=== PATIENT | male | born 1960 | race Caucasian/White ===

== ENCOUNTER 2023-07-15 14:43 | Inpatient (IN) | payer OTHER, SELFPAY ==
[2023-07-15] VITALS (63 sets, daily range): BP systolic 84–117; BP diastolic 47–90
--- NOTE | 2023-07-15 11:32 | ED.GENMED ---
History of Present Illness
<Don Mas PA-C - Last Filed: 07/15/23 13:48>
General
Chief Complaint: Rectal Bleeding
Source: patient
Exam Limitations: none
Time Seen by Provider: 07/15/23 11:15
Travel History
Have you had any contact with someone who has COVID-19?: No
Do you have any symptoms of coronavirus? Fever > 100 degrees, chills, cough, shortness of breath, sore throat, loss of taste or smell, muscle aches, or headache?: No
History of Present Illness
History of Present Illness:
62-year-old male with history of stage IV colon cancer has ostomy recently admitted to [facility] last week for COVID and anemia presents that his ostomy bag has now filled up 3 times with blood today. He notes fatigue. He denies abdominal pain.
No chest pain. He denies any shortness of breath. He did receive remdesivir while he was at the hospital. He has been told that the bleeding that he gets is from his tumor and there unable to cauterize this. He has been urinating. No other
complaints at this time.
Past History
<Don Mas PA-C - Last Filed: 07/15/23 13:48>
Past History
ED Past Medical History: Cancer (Prostate, recent dx with stage 4 colon ca)
ED Past Surgical History: Bowel resection (colostomy 12/01/21) and Urological
Social History
Tobacco: Non-smoker
Alcohol: Occasional
Drug: None
Personal:
Living: with family
Employment: Employed
Phy Exam
<Don Mas PA-C - Last Filed: 07/15/23 13:48>
Physical Exam
Physical Exam:
General: Ill-appearing male chronically no acute respiratory distress
HEENT: Normocephalic atraumatic
Heart: Regular rate and rhythm no murmur
Lungs: Clear no wheeze or rales
Abdomen: Ostomy present filled with dark red blood
Extremities: No cyanosis mild edema bilateral lower extremities
Skin: Warm no rash but pale
Course
<Don Mas PA-C - Last Filed: 07/15/23 13:48>
Orders/Labs/Results
Orders:
Orders
07/15/23 12:23
Type+Screen Urgent
Complete Blood Count/With Diff Urgent
Comprehensive Metabolic Panel Urgent
Manual Differential Urgent
07/15/23 12:36
* Blood Bank Products Urgent
Blood Bank Products: *Packed RBC Leuko(PRBC's)
Quantity: 2
Transfuse Today: Yes
Reason: Bleeding
07/15/23 12:52
0.9% Sodium Chloride 1000 ml [Nss] 1,000 ml IV BOLUS
07/15/23 13:02
Tranexamic Acid 1000 mg/100 ml [Tranexamic Acid] 1,000 mg in 100 ml IV ONCE
07/15/23 13:11
CT Angio Abd/Pelvis w/wo IV [CT Abd/pelvis Angio W/wo Iv] Urgent
Comment:
Reason For Exam: hemorrhage from ostomy
07/15/23 13:29
Magnesium Urgent
Potassium Chloride [KCl] 40 meq Dextrose 5%/Water 250 ml [D5w] 250 ml IV NOW
Abnormal Lab Results
07/15/23
12:23
WBC 21.9 H 10^3/uL
(4.8-10.8)
RBC 1.80 L 10^6/uL
(4.70-6.10)
Hgb 5.4 L* g/dL
(13.0-18.0)
Hct 15.8 L* %
(39.0-52.0)
RDW 19.6 H %
(11.5-14.5)
Abs Neuts (Manual) 19.2 H 10^3/uL
(1.4-6.5)
Segmented Neutrophils 86 H %
(42-75)
Lymphocytes (Manual) 4 L %
(20-51)
Potassium 2.8 L mmol/L
(3.5-5.1)
Chloride 113 H mmol/L
(98-107)
Carbon Dioxide 18 L mmol/L
(22-30)
Glucose 157 H mg/dl
(70-99)
Calcium 7.1 L mg/dl
(8.4-10.2)
Total Protein 4.4 L g/dl
(6.3-8.2)
Albumin 2.0 L g/dl
(3.5-5.0)
Crossmatch IS Only See Detail
07/15/23 12:23
07/15/23 12:23
Vital Signs
Initial and Last Documented VS:
Initial Vital Signs
Temp Pulse Resp BP Pulse Ox
97.6 F 112 18 101/71 100
07/15/23 11:06 07/15/23 11:06 07/15/23 11:06 07/15/23 11:06 07/15/23 11:06
Last Documented Vital Signs
Temp Pulse Resp BP Pulse Ox
97.8 F 85 18 102/57 100
07/15/23 13:45 07/15/23 13:45 07/15/23 13:45 07/15/23 13:45 07/15/23 13:45
Judylt;Hector Prakash, DO - Last Filed: 07/15/23 13:28>
Orders/Labs/Results
Orders:
Orders
07/15/23 12:23
Type+Screen Urgent
Complete Blood Count/With Diff Urgent
Comprehensive Metabolic Panel Urgent
Manual Differential Urgent
07/15/23 12:36
* Blood Bank Products Urgent
Blood Bank Products: *Packed RBC Leuko(PRBC's)
Quantity: 2
Transfuse Today: Yes
Reason: Bleeding
07/15/23 12:52
0.9% Sodium Chloride 1000 ml [Nss] 1,000 ml IV BOLUS
07/15/23 13:02
Tranexamic Acid 1000 mg/100 ml [Tranexamic Acid] 1,000 mg in 100 ml IV ONCE
07/15/23 13:11
CT Angio Abd/Pelvis w/wo IV [CT Abd/pelvis Angio W/wo Iv] Urgent
Comment:
Reason For Exam: hemorrhage from ostomy
07/15/23 13:29
Magnesium Urgent
Potassium Chloride [KCl] 40 meq Dextrose 5%/Water 250 ml [D5w] 250 ml IV NOW
Abnormal Lab Results
07/15/23
12:23
WBC 21.9 H 10^3/uL
(4.8-10.8)
RBC 1.80 L 10^6/uL
(4.70-6.10)
Hgb 5.4 L* g/dL
(13.0-18.0)
Hct 15.8 L* %
(39.0-52.0)
RDW 19.6 H %
(11.5-14.5)
Abs Neuts (Manual) 19.2 H 10^3/uL
(1.4-6.5)
Segmented Neutrophils 86 H %
(42-75)
Lymphocytes (Manual) 4 L %
(20-51)
Potassium 2.8 L mmol/L
(3.5-5.1)
Chloride 113 H mmol/L
(98-107)
Carbon Dioxide 18 L mmol/L
(22-30)
Glucose 157 H mg/dl
(70-99)
Calcium 7.1 L mg/dl
(8.4-10.2)
Total Protein 4.4 L g/dl
(6.3-8.2)
Albumin 2.0 L g/dl
(3.5-5.0)
Crossmatch IS Only See Detail
07/15/23 12:23
07/15/23 12:23
Vital Signs
Initial and Last Documented VS:
Initial Vital Signs
Temp Pulse Resp BP Pulse Ox
97.6 F 112 18 101/71 100
07/15/23 11:06 07/15/23 11:06 07/15/23 11:06 07/15/23 11:06 07/15/23 11:06
Last Documented Vital Signs
Temp Pulse Resp BP Pulse Ox
97.8 F 85 18 102/57 100
07/15/23 13:45 07/15/23 13:45 07/15/23 13:45 07/15/23 13:45 07/15/23 13:45
<Don Mas PA-C - Last Filed: 07/15/23 13:48>
MDM/Problems Addressed
Differential Diagnosis Includes:
GI bleeding. Patient was told as an outpatient his hemoglobin was 7 from blood draw yesterday
Will recheck labs and type and screen.
<Hector Prakash DO - Last Filed: 07/15/23 13:28>
*Critical Care Note
Total Time (30-74mins, 75-104mins- exclusive of procedures): 60
comment:
Critical care statement: A total of 60 minutes of critical care time was provided for this patient. This includes management of unstable vital signs, evaluation of the patient at bedside, reviewing the patient's pertinent medical records, discussion
with consultants, review of old EKGs and review of pertinent medical records. This time with separate from time utilized to perform the aforementioned documented procedures
<Don Mas PA-C - Last Filed: 07/15/23 13:48>
Update Note
Update Note:
Patient reevaluated multiple times. Blood pressure did drop in with systolic in the 80s. He continues to lose blood through his ostomy. Emergency room attending into see patient. Spoke to colorectal as well as GI. CTA ordered TXA ordered 2
units of blood were ordered. Admitting team notified for ICU admission.
ED Attending Note
<Don Mas PA-C - Last Filed: 07/15/23 13:48>
-
Portions of this chart may have been created with voice recognition software.� Occasional wrong word or��sound alike� substitutions may have occurred due to the inherent limitations of voice recognition software.
<Hector Prakash DO - Last Filed: 07/15/23 13:28>
ED Attending Note
Patient seen and examined by attending physician: Yes
I performed the substantive portion of visit, reviewed & personally made and approve the management plan that is documented in note by myself or FIORDALIZA.: Yes
ED Attending Note:
I have reviewed and agree with history and treatment plan by Nakul Mas. My exam revealed bright red blood from colostomy, mild control with direct pressure. TXA ordered. 2 units packed red blood cells ordered. Discussed with Dr. Daniels, who
recommended CTA, but does not think that is operable. Plan to admit to ICU.
Discharge Plan
Departure
Patient Disposition: Admit
Date of Disposition: 07/15/23
Time of Disposition: 13:47
Admit to: ICU
Presentation/result/management discussed w/ accepting MD/DO: Hospitalist
Discharge Problem:
Acute GI bleeding, Anemia
Prescriptions:
No Action
loperamide [Imodium] 2 mg Capsule
4 mg PO TIDPRN PRN (Reason: diarrhea)
olanzapine 5 mg Tablet
5 mg PO HS
diphenoxylate-atropine 2.5-0.025 mg Tablet
1 tab PO QIDPRN PRN (Reason: diarrhea)
Patient Comments:
07/15/2023, pt. filled this med. on 05/20/2023 for 30 tablets according to PDMP.
prochlorperazine maleate 10 mg Tablet
10 mg PO Q6H PRN (Reason: nausea)
ondansetron 8 mg Tablet,Disintegrating
8 mg PO Q8H PRN (Reason: nausea)
vitamin B complex Tablet
1 tab PO DAILY
gabapentin 100 mg Capsule
200 mg PO HS
loratadine [Claritin] 10 mg Tablet
10 mg PO DAILY
potassium chloride 10 mEq tablet,ER particles/crystals
10 meq PO DAILY
Patient Comments:
07/15/2023, prescribed BID but pt. only takes once daily in the morning.
potassium, sodium phosphates [Phos-NaK] 280-160-250 mg Powder In Packet
2 packet PO BID
Patient Comments:
07/15/2023, pt. filled this med. on 07/12/2023 and is instructed to take 2 packets BID for 2 days.
baclofen 5 mg Tablet
5 mg PO TID
Patient Comments:
07/15/2023, pt. has since sopped taking b/c his hiccups resided.
Ziextenzo 6 mg/0.6 mL Syringe
6 mg SC . EVERY OTHER WEEK
Patient Comments:
07/15/2023, not in pt.'s pharmacy records or in [facility].
Referrals:
Robert Bettencourt DO [Family Provider] -
Interventions
Interventions:
*General Assessment Last Done: 07/15/23 11:40
*ED COVID-19 Vaccine History Last Done: 07/15/23 11:06
JQ-Egowva-Ivvvagujig Assessment Last Done: 07/15/23 11:40
ED- Cardiac Assessment Last Done: 07/15/23 12:09
ED- Pulmonary Assessment Last Done: 07/15/23 13:00
--- NOTE | 2023-07-15 11:55 | PHANOTE ---
07/15/2023, [employer], spoke to pt. and pt.'s spouse to obtain pt.'s med. history; pt. does not take a lot of their prescription meds. on a routine basis. Additionally, pt. states that they take Ziextenzo every other week but I was unable to find
this med. in pt.'s pharmacy fill data or [facility] records.
[2023-07-15 12:35] LABS: Mean Corp Hgb Conc. 34.2 g/dL (33.0-37.0); Mean Corpuscular Volume 87.8 fL (80.0-94.0); Platelet Count 216 10^3/uL (130-400); Red Cell Dist. Width 19.6 % (11.5-14.5); White Blood Cell Count 21.9 10^3/uL (4.8-10.8)
[2023-07-15 12:48] LABS: Hematocrit 15.8 % (39.0-52.0)
[2023-07-15 12:49] LABS: Hemoglobin 5.4 g/dL (13.0-18.0)
[2023-07-15] MEDS: NSS 1000 IV (12:54)
[2023-07-15 12:57] LABS: ALT (SGPT) 17 U/L (0-50); AST (SGOT) 28 U/L (17-59); Alkaline Phosphatase 122 U/L (38-126); Blood Urea Nitrogen 19 mg/dl (9-20); Calcium 7.1 mg/dl (8.4-10.2); Carbon Dioxide 18 mmol/L (22-30); Chloride 113 mmol/L (98-107); Glucose 157 mg/dl (70-99); Potassium 2.8 mmol/L (3.5-5.1); Sodium 135 mmol/L (135-145); Total Bilirubin 0.9 mg/dl (0.2-1.3); Total Protein 4.4 g/dl (6.3-8.2); eGFR > 60.00
[2023-07-15] MEDS: TRANEXAMIC ACID 100 IV (13:07)
[2023-07-15 13:11] LABS: Absolute Neutrophils -Man Diff 19.2 10^3/uL (1.4-6.5); Band Neutrophils 2 % (0-3); Lymphocytes 4 % (20-51); Monocytes 3 % (2-9); Segmented Neutrophils 86 % (42-75)
[2023-07-15 13:12] LABS: Anisocytosis 2+; Hypochromasia Slight; Metamyelocytes 4 % (-); Myelocytes 1 % (-); Normal RBC Morphology No; Platelets Checked Yes; Polychromasia 2+
[2023-07-15 13:13] LABS: Ovalocytes 1+; Total Cells Counted 100
--- NOTE | 2023-07-15 13:43 | HPS.HSE ---
Addendum entered and electronically signed by More Lo MD 07/15/23 16:51:
cancel GI consult
Original Note:
Family Physician
-
Family Physician: Robert Bettencourt
Chief Complaint
-
Rectal bleeding.
History of Present Illness
62 y/o male with rectal bleeding. He has a history of stage IV colon cancer and has an ostomy and recently treated at [facility] last week for COVID and anemia. His ostomy bag is now filled up to 3 times with blood. Denies any abdominal pain.
Patient has been told that he has a tumor and are unable to cauterize his bleeding.Pt left AMA on 07/11/2023. Patient was admitted to [facility] from 07/07/23. He had COVID. Also had bleeding from the ostomy they did a scope-flex sig?-Through the
scope and was unable to cauterize any bleeding as the bleeding was coming from the tumor. Patient ended up getting 5 units of blood. Patient stated that he has had this bleeding October and January also. He was on chemotherapy since November 2021 and 6
weeks ago his chemo was changed to another medicine.
Medical History
Past Medical History
Past Medical History: Reports Other
Additional Past Medical History:
C6 herniated disc, diverticulosis with history of diverticulitis, inoperable colon cancer, prostate cancer, anemia, chronic fatigue, COVID-19 infection-recent
Past Surgical History: Reports Other
Additional Past Surgical History:
Prostatectomy, wisdom teeth surgery, colorectal surgery
Social History
Tobacco: Non-smoker
Alcohol: Other (Used to drink 1 drink every day until he was diagnosed with colon cancer in 2021. Does not drink since then.)
Drug: None
Personal:
Living: With Family
Family History
Family History: CAD and Cancer (Father with history of prostate cancer mother B-cell lymphoma)
Allergies / Home Medications
Allergies reflects when Allergies were last updated in [facility].
Home Medications with original date entered in [facility]
Allergy/Medication List:
Allergies
Allergy/AdvReac Type Severity Reaction Status Date / Time
No Known Allergies Allergy Verified 07/15/23 11:12
Home Medications
baclofen 5 mg tablet 5 mg PO TID 07/15/23
diphenoxylate-atropine 2.5 mg-0.025 mg tablet 1 tab PO QIDPRN PRN diarrhea 07/15/23
gabapentin 100 mg capsule 200 mg PO HS 07/15/23
loperamide 2 mg capsule 4 mg PO TIDPRN PRN diarrhea 07/15/23
loratadine 10 mg tablet (Claritin) 10 mg PO DAILY 07/15/23
olanzapine 5 mg tablet 5 mg PO HS 07/15/23
ondansetron 8 mg disintegrating tablet 8 mg PO Q8H PRN nausea 07/15/23
pegfilgrastim-bmez 6 mg/0.6 mL subcutaneous syringe (Ziextenzo) 6 mg SC . EVERY OTHER WEEK 07/15/23
potassium chloride 10 mEq tablet,extended release(part/cryst) 10 meq PO DAILY 07/15/23
potassium, sodium phosphates 280 mg-160 mg-250 mg oral powder packet (Phos-NaK) 2 packet PO BID 07/15/23
prochlorperazine maleate 10 mg tablet 10 mg PO Q6H PRN nausea 07/15/23
vitamin B complex 1 tab PO DAILY 07/15/23
Review of Systems
-
History Source: Patient
Abdomen/GI: Reports Diarrhea and Bloody Stools; Denies Abdominal Pain, Nausea or Vomiting
Neurological: Denies Dizzy or Headache
Physical Exam
Vital Signs
Vital Signs
Temp Pulse Resp BP Pulse Ox
97.8 F 85 18 102/57 100
07/15/23 13:42 07/15/23 13:42 07/15/23 13:42 07/15/23 13:42 07/15/23 13:42
Physical Exam
General: Other (Patient appears very pale)
Respiratory: Clear
Cardiac: Regular Rhythm
GI: Soft, Normal Bowel Sounds and Ostomy (Fresh blood in the ostomy bag)
Neuro: AO x 3 and Nonfocal/grossly intact
Psych: Intact Judgment/Insight
Laboratory Results
-
07/15/23 12:23
07/15/23 12:23
Laboratory Results
Total Bilirubin 0.9 mg/dl (0.2-1.3) 07/15/23 12:23
AST 28 U/L (17-59) 07/15/23 12:23
ALT 17 U/L (0-50) 07/15/23 12:23
Alkaline Phosphatase 122 U/L (38-126) 07/15/23 12:23
Data Reviewed
-
CT Scan: Report Reviewed by me (CT scan of the abdomen and pelvis-large volume massive ascites increased in size comparison to the recent. Evaluation of the colon for active bleeding markedly limited. Extensive omental and peritoneal
carcinomatosis. Left lower quadrant colostomy with accompanying parastomal hernia. Scattered s)
Impression/Plan
-
IMPRESSION/PLAN:
#Bleeding into ostomy
Patient had similar problem in October, January and also end of June 2023 where he was admitted to [facility].
He got 5 units of blood at that time and flex sig through the ostomy found the tumor bleeding. They told him nothing could be done.
Admit to ICU
IVF and blood product resuscitation
Tranexamic acid has been given
GI and colorectal surgery eval
Follow H and H and transfuse as needed
CT angiogram as above
#Acute Blood loss Anemia secondary to GI bleed
# Severe hypokalemia-replace IV and also check magnesium
Likely secondary to diarrhea
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
Omental metastasis, peritoneal carcinomatosis and massive ascites noted
Patient has not been able to follow-up with his oncologist after CT on 07/06/2023 as she is on vacation.
Resident at [facility] is Dr Albarado
Patient and think that he was on FOLFOX regimen before and changed to a new regimen 6 weeks ago and he has had 3 cycles of that.
# Elevated white count-unclear if secondary to Pegfilgrastim
But check stool studies, chest x-ray, urinalysis
# Recent COVID-19 infection
# Severe hypoalbuminemia
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
# SCDs for DVT prophylaxis
# CODE STATUS-DNR per discussion with the patient with at bedside
Sister and at bedside
Discussed with ER attending
Discussed with colorectal at bedside
Poor prognosis
CC time 45 min
--- NOTE | 2023-07-15 14:10 | CON.CRS ---
Consultation
-
Date/Time Consultation Requested: 07/15/2023, 13:10
Date/Time Consultation Performed: 07/15/2023, 14:00
Requesting Provider: Don Flores PA-C
Performing Provider: Don Daniels MD
Reason for Consultation: bleeding from stoma
Medical History
-
Chief Complaint: stoma bleed
History of Present Illness:
62-year-old male presents the emergency department with stage IV sigmoid cancer with large bowel obstruction and secondary liver and peritoneal disease.� He had a colonoscopy by Dr. Acosta on 11/27/2021 which confirmed obstructing sigmoid mass.�
During that procedure the scope was unable to pass the mass.� On biopsy it was revealed to be a villous adenoma with HGD on biopsy.�He underwent a loop sigmoid colostomy in 11/[address] Reyes. His findings included a large bowel obstruction
secondary to the sigmoid colon tumor. He was since discharged in December 2021 and went to [facility] for treatment. He states in October 2022, January 2023, and this past week he has had instances of bleeding from his stoma. Usually it stops, however, a week
ago it did not. He went to [facility] and was admitted from this past Tuesday to Tuesday. On Tuesday he left AMA. He is under the treatment of Dr. Dodson. He underwent several blood transfusions while he was at [facility]. He also underwent a flexible
sigmoidoscopy and was told the bleeding was coming from his tumor. He recently had a staging CT A/P but does not know the results. Of note, he was diagnosed with COVID at [facility].
He arrived at [facility] due to the ostomy bag filling up with blood 5 times today.He admits to some fatigue. He denies abdominal pain. He received 1 unit of tranexemic acid while in the ER. Currently he is not bleeding. His hgb is 5.4 and
his WBC is 21.9. He is receiving several units of blood. He is slightly hypotensive. He underwent a CT A/P and the final result is pending.
Past Medical History
Past Medical History: Cancer (prostate cancer, stage IV colon cancer, anal fissure, diverticulitis) and Other
Past Surgical History: Other (robotic prostatectomy, )
Social History
Tobacco: Non-Smoker
Alcohol: Occasional
Personal:
Family History
Family History: Reviewed & Not Pertinent
Allergies / Home Medications
Allergy/AdvReac Type Severity Reaction Status Date / Time
No Known Allergies Allergy Verified 07/15/23 11:12
Medication Instructions Recorded Confirmed Type
baclofen 5 mg tablet 5 mg PO TID 07/15/23 07/15/23 History
diphenoxylate-atropine 2.5 1 tab PO QIDPRN PRN diarrhea 07/15/23 07/15/23 History
mg-0.025 mg tablet
gabapentin 100 mg capsule 200 mg PO HS 07/15/23 07/15/23 History
loperamide 2 mg capsule 4 mg PO TIDPRN PRN diarrhea 07/15/23 07/15/23 History
loratadine 10 mg tablet (Claritin) 10 mg PO DAILY 07/15/23 07/15/23 History
olanzapine 5 mg tablet 5 mg PO HS 07/15/23 07/15/23 History
ondansetron 8 mg disintegrating 8 mg PO Q8H PRN nausea 07/15/23 07/15/23 History
tablet
pegfilgrastim-bmez 6 mg/0.6 mL 6 mg SC . EVERY OTHER WEEK 07/15/23 History
subcutaneous syringe (Ziextenzo)
potassium chloride 10 mEq 10 meq PO DAILY 07/15/23 07/15/23 History
tablet,extended release(part/cryst)
potassium, sodium phosphates 280 2 packet PO BID 07/15/23 07/15/23 History
mg-160 mg-250 mg oral powder
packet (Phos-NaK)
prochlorperazine maleate 10 mg 10 mg PO Q6H PRN nausea 07/15/23 07/15/23 History
tablet
vitamin B complex 1 tab PO DAILY 07/15/23 07/15/23 History
Review of Systems
-
History Source: Patient and Family
Constitutional: Fatigue
Abdomen/GI: Bloody Stools (from stoma)
A 10 point review of systems was completed, and was negative except as per HPI.
Physical Exam
Vital Signs
Temp 97.8 F 07/15/23 14:05
Pulse 77 07/15/23 14:05
Resp Rate 13 07/15/23 14:05
Blood pressure 105/65 07/15/23 14:05
SaO2 100 07/15/23 13:59
07/14/23 07/15/23 07/16/23
06:59 06:59 06:59
Actual Weight 86.8 kg
Lab Results / Allergies
WBC 21.9 10^3/uL (4.8-10.8) H 07/15/23 12:23
Hgb 5.4 g/dL (13.0-18.0) L* 07/15/23 12:23
Hct 15.8 % (39.0-52.0) L* 07/15/23 12:23
Plt Count 216 10^3/uL (130-400) 07/15/23 12:23
Allergy/AdvReac Type Severity Reaction Status Date / Time
No Known Allergies Allergy Verified 07/15/23 11:12
Physical Exam
General: Other (pale in appearance, aaox3)
GI: Soft, Non Tender and Non Distended
Neuro: AO x 3
Psych: Calm
Data Reviewed
-
CT Scan: Image Personally Visualized and interpreted, Report Reviewed by me and Discussed with Patient
Labs: Labs Reviewed by me, Discussed with Physician and Discussed with Patient
Assessment / Plan
-
Assessment: 62 male with stage IV colon cancer, undergoing chemo at [facility], now with a bleeding from the ostomy, hgb 5.3
Plan:
The bleeding does not appear to be from the stoma itself upon examination. He recently had a flex sig at [facility] which per the patient and revealed the tumor itself was bleeding. Recommend transfusions, serial H/H's, and another transexmic
acid 1g IV if bleeding reoccurs. CTA A/P if bleeds again.
[2023-07-15 14:58] LABS: Iron 79 ug/dl (49-181); Magnesium 2.7 mg/dl (1.6-2.3)
[2023-07-15] MEDS: KCL 270 MEQ IV (15:02)
--- NOTE | 2023-07-15 15:04 | CON.INTV ---
Consultation
Consultation Request
Date/Time Consultation Requested: 07-15-23
Date/Time Consultation Performed: 07-15-23
Requesting Provider: Hospitalist
Performing Provider: Dr Bautista
Reason for Consultation: severe anemia, sigmoid colostomy bleeding
Medical History
-
Chief Complaint: sigmoid colostomy bleeding
History of Present Illness:
Mr Lisa Borrero is a 62/M adm 07-15 with recurrent sigmoid colostomy bleeding.
Known h/o stage IV colon cancer, s/p loop sigmoid colostomy November 2021 at , then further treatment at [facility] for metastatic colon cancer, recently adm there on 07-09 for recurrent stomal bleeding, given several blood transfusions, sigmoidoscopy found
source of bleeding at colonic tumor, incidentally positive for COVID at that facility.
Upon ER arrival his colostomy bag filled up to 5 times on DOA, hypotensive, given TA dose at ER, started IVFs. CTA abd/p could not confirm active bleeding due to limited study as result of ascites
Past Medical History
Past Medical History: Other (see A&P for PMH/PSH)
Social History
Tobacco: Non-smoker
Alcohol: Occasional
Personal:
Living: With Family
Family History
Family History: Reviewed & Not Pertinent
Allergies / Home Medications
Allergies
Allergy/AdvReac Type Severity Reaction Status Date / Time
No Known Allergies Allergy Verified 07/15/23 11:12
Home Medications
Medication Instructions Recorded Confirmed Last Taken Type
baclofen 5 mg tablet 5 mg PO TID Muscle Spasms 07/15/23 07/15/23 3 Days Ago History
~07/12/23
diphenoxylate-atropine 2.5 1 tab PO QIDPRN PRN diarrhea 07/15/23 07/15/23 Unknown History
mg-0.025 mg tablet
gabapentin 100 mg capsule 200 mg PO HS Pain 07/15/23 07/15/23 07/14/23 History
loperamide 2 mg capsule 4 mg PO TIDPRN PRN diarrhea 07/15/23 07/15/23 1 Week Ago History
~07/08/23
loratadine 10 mg tablet (Claritin) 10 mg PO DAILY Allergies 07/15/23 07/15/23 07/13/23 History
olanzapine 5 mg tablet 5 mg PO HS Mental Health 07/15/23 07/15/23 Unknown History
ondansetron 8 mg disintegrating 8 mg PO Q8H PRN nausea 07/15/23 07/15/23 Unknown History
tablet
pegfilgrastim-bmez 6 mg/0.6 mL 6 mg SC . EVERY OTHER WEEK white 07/15/23 Unknown History
subcutaneous syringe (Ziextenzo) blood cell count
potassium chloride 10 mEq 10 meq PO DAILY Electrolyte 07/15/23 07/15/23 2 Days Ago History
tablet,extended release(part/cryst) Repletion ~07/13/23
potassium, sodium phosphates 280 2 packet PO BID Electrolyte 07/15/23 07/15/23 2 Days Ago History
mg-160 mg-250 mg oral powder Repletion ~07/13/23
packet (Phos-NaK)
prochlorperazine maleate 10 mg 10 mg PO Q6H PRN nausea 07/15/23 07/15/23 Unknown History
tablet
vitamin B complex 1 tab PO DAILY Supplement 07/15/23 07/15/23 07/13/23 History
Review of Systems
-
History Source: Patient
All other systems: Negative unless noted
Constitutional: Fatigue
Abdomen/GI: Other (colostomy bleeding)
Neuro: Weakness
Vitals / Labs / Diagnostic Testing
Vital Signs
Temp Pulse Resp BP Pulse Ox
97.4 F 71 12 106/65 100
07/15/23 15:00 07/15/23 15:00 07/15/23 15:00 07/15/23 15:00 07/15/23 15:00
Diagnostic Testing:
Physical Exam
-
HEENT: Normocephalic and Moist Mucous Membranes
Cardiovascular: Regular Rhythm, Murmur (n), Peripheral Edema (DAVID), Calf Tenderness (n), JVD and Other (R chest port-A-cath)
Respiratory: Clear and Non-Labored Respirations
GI: Soft, Non Distended, Non Tender and Other (colostomy )
Neurology: Awake, AO x 3 and No Motor Deficits
Skin: Dry
General: Respiratory Distress (n)
Assessment
-
Assessment:
Mr Lisa Borrero is a 62/M adm 07-15 with recurrent sigmoid colostomy bleeding. Known h/o stage IV colon cancer, s/p loop sigmoid colostomy November 2021 at , then further treatment at [facility] for metastatic colon cancer, recently adm there on 07-09
for recurrent stomal bleeding, given several blood transfusions, sigmoidoscopy found source of bleeding at colonic tumor, incidentally positive for COVID at that facility. Upon ER arrival his colostomy bag filled up to 5 times on DOA, hypotensive,
given TA dose at ER, CTA abd/p could not confirm active bleeding due to limited study as result of ascites
Impression:
Acute severe anemia
Reportedly colonic tumor is source of bleeding (sigmoidoscopy at [facility])
Chemo-induced neuropathy, on gabapentin
Leukocytosis
Hypokalemia
Recent COVID positive test
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
Metastatic colon cancer: ascites, omental/peritoneal, liver. On palliative chemo, FOLFOX based regimen until 6 wks ago when regimen was changed
COVID positive test on recent adm to [facility] 07-08, reportedly received 4 doses of remdesivir, unsure if received dexam but was not d/c on dexam, he left AMA on M 07-11
Diverticulosis
Prostate cancer
Former ETOH use
Nonsmoker
DNR
Plan:
O2 protocol
Currently on O2 2L, POx 100%
Asp precs
IS
Recurrent bleeding through colostomy: events noted in October and Jan 2023 and Jun 2023
Reportedly site of bleeding is colonic tumor per endoscopic evaluation, received up to 5U PRBCs
Reports side effect of diarrhea from previous chemo regimen and also recent chemo regimen
C diff testing pending
IVFs
Observe off atbs for now
Monitor H/H
Transfuse for Hgb<7, ongoing at time of visit
E-lyte replacement
Tranexamic acid if bleeding reoccurs
Apparently bleeding collection appears decreased while seen at ER
Seen by CRS, currently no plan for surgical intervention
GI consulted
Keep NPO for now
SCDs for DVT proph
D/w Mr and Mrs Borrero at ER
Guarded prognosis
Critical care time: 35 min
Diagnostic tests:
CXR 07-15-23: portable, no infiltrates, R chest port-A-cath. No free air
CTA abd/p 07-15-23: lung bases with patchy R LL posterior infiltrates
[2023-07-15 15:07] LABS: Percent Saturation 48 % (20-50); Total Iron Binding Capacity 163 ug/dl (261-462)
[2023-07-15 16:04] LABS: Vitamin D, 25-OH*** < 12.8 ng/mL (30-80)
[2023-07-15 16:37] LABS: Vitamin B12 > 1000 pg/ml (239-931)
[2023-07-15] MEDS: KCL 10 MEQ PO (17:39)
[2023-07-15] MEDS: D5LR 1000 IV (17:40)
[2023-07-15] MEDS: LIORESAL PO ×2 (17:40→21:55)
[2023-07-15 17:44] LABS: Hematocrit 19.8 % (39.0-52.0); Hemoglobin 7.2 g/dL (13.0-18.0)
[2023-07-15 17:51] LABS: INR 1.51
[2023-07-15 17:52] LABS: APTT 40.4 Sec (23.4-35.0)
[2023-07-15 17:57] LABS: Blood Urea Nitrogen 17 mg/dl (9-20); Calcium 6.8 mg/dl (8.4-10.2); Carbon Dioxide 17 mmol/L (22-30); Chloride 115 mmol/L (98-107); Estimated Creatinine Clearance 96 ml/min; Glucose 92 mg/dl (70-99); Magnesium 2.6 mg/dl (1.6-2.3); Potassium 2.9 mmol/L (3.5-5.1); Sodium 134 mmol/L (135-145); eGFR > 60.00
--- NOTE | 2023-07-15 18:23 | PTCARENOTE ---
Pt admitted to ICU bed 3357 from ED at 1615.
Pt AAOx3. Reports neuropathy in all extremities as side effect of chemo.
Sinus rhythm. +1 ankle edema. Weak pedal pulses
Lungs CTA. SpO2 100% on 2L NC.
Colostomy with about 25ml bright red blood since received from ED. No active bleeding noted.
Pt has not voided since admitted to unit.
Skin intact.
IVF started per order. KCl infusing.
Unable to to get blood cultures at this time d/t pt difficult stick.
Infection prevention called d/t pt reported positive covid test 7days ago. Pt placed on covid isolation.
Critical calcium 6.8 reported. Awaiting calcium repletion order before starting third unit of PRBC.
[2023-07-15 18:45] LABS: Vitamin B12 > 1000 pg/ml (239-931)
[2023-07-15] MEDS: KCL 100 IV (19:46)
[2023-07-15] MEDS: CALCIUM GLUCONATE 130 MG IV (19:46)
--- NOTE | 2023-07-15 19:58 | PTCARENOTE ---
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 POC discussed with pt and family, call blanco with patient.
[2023-07-15] MEDS: ZYPREXA 5 MG PO (21:55)
[2023-07-15] MEDS: NEURONTIN 200 MG PO (21:55)
--- NOTE | 2023-07-15 22:00 | PTCARENOTE ---
1u PRBC complete, pt voided 275cc lauro urine, UA to lab.
[2023-07-15 22:20] LABS: Urine Albumin Trace (Neg - Trace); Urine Bilirubin Negative (Negative); Urine Character Clear (Clear); Urine Color Yellow; Urine Glucose Negative (Negative); Urine Ketone Negative (Negative); Urine Leukocyte Negative (Negative); Urine Nitrite Negative (Negative); Urine Occult Blood Negative (Negative); Urine Specific Gravity 1.015 (<1.030); Urine Urobilinogen Negative (Neg - 1+)
[2023-07-15 23:22] LABS: Hematocrit 23.3 % (39.0-52.0); Hemoglobin 8.4 g/dL (13.0-18.0)
[2023-07-16] VITALS (27 sets, daily range): BP systolic 84–121; BP diastolic 61–84; PULSE 70–84; BMI 22.9
--- NOTE | 2023-07-16 | PTCARENOTE ---
ostomy emptied for 100cc bloody liquid/soft brown stool. no changes in assessment.
[2023-07-16 00:06] LABS: Blood Urea Nitrogen 17 mg/dl (9-20); Calcium 7.4 mg/dl (8.4-10.2); Carbon Dioxide 19 mmol/L (22-30); Chloride 115 mmol/L (98-107); Estimated Creatinine Clearance 88 ml/min; Glucose 121 mg/dl (70-99); Magnesium 2.5 mg/dl (1.6-2.3); Potassium 3.8 mmol/L (3.5-5.1); Sodium 134 mmol/L (135-145); eGFR > 60.00
[2023-07-16] MEDS: SODIUM BICARBONATE 1075 MEQ IV (02:37)
--- NOTE | 2023-07-16 06:08 | PTCARENOTE ---
no changes in assessment, ostomy bag with small amt brown liquid stool, no blood noted.
[2023-07-16 06:29] LABS: Hematocrit 21.9 % (39.0-52.0); Hemoglobin 7.8 g/dL (13.0-18.0)
[2023-07-16 06:50] LABS: Blood Urea Nitrogen 16 mg/dl (9-20); Calcium 7.3 mg/dl (8.4-10.2); Carbon Dioxide 16 mmol/L (22-30); Chloride 117 mmol/L (98-107); Estimated Creatinine Clearance 87 ml/min; Glucose 103 mg/dl (70-99); Potassium 3.3 mmol/L (3.5-5.1); Sodium 136 mmol/L (135-145); eGFR > 60.00
--- NOTE | 2023-07-16 07:38 | W.PN.INTV ---
Today's Communication / Plan
Recommendations
Monitor H&H
Transfuse if hemoglobin less than 7
CRS following
Assessment
-
Assessment:
Mr Lisa Borrero is a 62/M adm 07-15 with recurrent sigmoid colostomy bleeding. Known h/o stage IV colon cancer, s/p loop sigmoid colostomy November 2021 at , then further treatment at [facility] for metastatic colon cancer, recently adm there on 07-09
for recurrent stomal bleeding, given several blood transfusions, sigmoidoscopy found source of bleeding at colonic tumor, incidentally positive for COVID at that facility. Upon ER arrival his colostomy bag filled up to 5 times on DOA, hypotensive,
given TA dose at ER, CTA abd/p could not confirm active bleeding due to limited study as result of ascites
Impression:
Acute severe anemia
Reportedly colonic tumor is source of bleeding (sigmoidoscopy at [facility])
Chemo-induced neuropathy, on gabapentin
Leukocytosis
Hypokalemia
Recent COVID positive test
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
Metastatic colon cancer: ascites, omental/peritoneal, liver. On palliative chemo, FOLFOX based regimen until 6 wks ago when regimen was changed
COVID positive test on recent adm to [facility] 07-08, reportedly received 4 doses of remdesivir, unsure if received dexam but was not d/c on dexam, he left AMA on M 07-11
Diverticulosis
Prostate cancer
Former ETOH use
Nonsmoker
DNR
Plan:
O2 protocol
Currently on O2 2L, POx 100%
Asp precs
IS
Recurrent bleeding through colostomy: events noted in October and Jan 2023 and Jun 2023
Reportedly site of bleeding is colonic tumor per endoscopic evaluation, received up to 5U PRBCs
Reports side effect of diarrhea from previous chemo regimen and also recent chemo regimen
C diff testing negative
IVFs
Observe off atbs for now
Monitor H/H
Transfuse for Hgb<7
So far has received 3 U PRBCs, Hgb 5.4 on adm, up to 8.4, now down to 7.8, follow
E-lyte replacement
Seen by CRS, currently no plan for surgical intervention
Not a candidate for palliative resection
If rebleeds, CTA for possible embolization
If bleeding stops, consider palliative XRT as outpatient
Rec hospice
Keep NPO for now
SCDs for DVT proph
D/w Mr and Mrs Borrero at ER
Guarded prognosis
Critical care time: 35 min
Diagnostic tests:
CXR 07-15-23: portable, no infiltrates, R chest port-A-cath. No free air
CTA abd/p 07-15-23: lung bases with patchy R LL posterior infiltrates
Subjective Dataa
Subjective Data
Date of Service:
Date of Service: July 16, 2023
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
Subjective:
No major events reported overnight
Microscopic bleeding has stopped
Hemoglobin remains stable
Denies major complaints
Review of Systems
General: Fever (n), Sweats (n), Chills (n) and Satisfactory Appetite (n)
HEENT: Epistaxis (n) and Dysphagia (n)
Cardiopulmonary: Dyspnea, Cough (n) and Edema (DAVDI)
GI: Abdominal Pain (n), Nausea (n) and Vomiting
Neuro: Weakness
Objective Data
Data Reviewed
Vital Signs / I&O / Oxygen:
Vital Signs
Temp Pulse Resp BP Pulse Ox
98 F 75 17 108/67 98
07/15/23 22:00 07/16/23 06:00 07/16/23 06:00 07/16/23 06:00 07/16/23 06:00
Intake and Output
07/15/23 07/16/23 07/17/23
06:59 06:59 06:59
Intake Total 2099 / 2099
Output Total 825 / 825
Balance 1275 / 1275
SaO2 98
Nasal Cannula flow liters per 2
minute
Labs/Micro/Reports
Lab Data
07/16/23 05:56
07/16/23 05:56
Laboratory Results
07/15/23
17:22
PT 18.0 H
INR 1.51
APTT 40.4 H
Microbiology
07/15/23 17:42 Feces/Stool C. difficile GDH Antigen & Toxins - Final
Negative for toxigenic C.difficile
--- NOTE | 2023-07-16 07:39 | W.PN.HOSP.TC ---
Today's Communication/Plan
-
monitor H&H, transfuse as necessary goal Hgb>7
Oncology eval
Replete potassium
NPO except meds sips clear ice chips for now, advance if no procedure anticipated
Assessment / Plan
Assessment / Plan
Physical Exam
General: No acute distress appears comfortable at this time
HEENT: PERRLA non-icteric
Respiratory: Clear to auscultation
Cardiac: Regular Rate Rhythm no murmurs
GI: Soft, Normal Bowel Sounds and Ostomy bag dark bilious diarrhea noted
Neuro: AO x 3 and Nonfocal/grossly intact
Psych: Intact Judgment/Insight
62 y/o male with� rectal bleeding.� He has a history of stage IV colon cancer and has an ostomy and recently treated at [facility] last week for COVID and anemia.� His ostomy bag is now filled up to 3 times with blood.� Denies any abdominal pain.�
Patient has been told that he has a tumor and are unable to cauterize his bleeding.Pt left AMA on 07/11/2023.� Patient was admitted to [facility] from 07/07/23.� He had COVID.� Also had bleeding from the ostomy they did a scope-flex sig?-Through the
scope and was unable to cauterize any bleeding as the bleeding was coming from the tumor.� Patient ended up getting 5 units of blood.� Patient stated that he has had this bleeding October and January also.� He was on chemotherapy since November 2021 and 6
weeks ago his chemo was changed to another medicine.
#Bleeding into ostomy
Patient had similar problem in October, January and also end of June 2023 where he was admitted to [facility].�
He got 5 units of blood at that time and flex sig through the ostomy found the tumor bleeding.� They told him nothing could be done.
Admitted to ICU
IVF and blood product resuscitation received 3U so far with subsequent improvement Hgb 5.4 to 7.2
Tranexamic acid was given
colorectal surgery eval appreciated poor surgical candidate even from palliative perspective
Follow H and H and transfuse as needed goal hgb>7
CT angiogram appreciated
-Large volume/massive ascites perhaps slightly increased in comparison to recent prior study.
-Evaluation of the colon for active bleeding markedly limited as a result of the ascites without findings to confirm active colonic bleeding.
-Extensive omental and peritoneal carcinomatosis again seen.
-Left lower quadrant colostomy again noted with likely accompanying parastomal hernia with small volume fluid.
-Essentially stable scattered small low-attenuation hepatic lesions too small to characterize.
-Small simple right renal cyst.
-Small umbilical hernia containing fluid, stable.
-New right lower lobe scattered patchy opacity which could represent pneumonia/pneumonitis. (does not correlate clinically at this time however, no significant respiratory symptoms stable on room air)
#Acute Blood loss Anemia secondary to GI bleed
#hypokalemia
Likely secondary to diarrhea
Monitor and replete as necessary
# Adenocarcinoma of sigmoid� with diverticulosis done in November 2021
Omental metastasis, peritoneal carcinomatosis and massive ascites noted
Patient has not been able to follow-up with his oncologist after CT on 07/06/2023 as she is on vacation.
Resident at [facility] is Dr Albarado
Patient and think that he was on FOLFOX regimen before and changed to a new regimen 6 weeks ago and he has had 3 cycles of that.
Oncology Eval requested
# Elevated white count-unclear if secondary to Pegfilgrastim vs stress reactive severe anemia
chest x-ray no acute abn's
urinalysis negative for infection
NGTD stool studies
Blood culture NGTD
# Recent COVID-19 infection
Positive Jul 08Tuesday as per
since AMA repeat tests at home negative
Re-check COVID
maintain isolation for now
# Severe hypoalbuminemia
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
# SCDs for DVT prophylaxis
# CODE STATUS-DNR
Discussed with patient, patient's and sister.
Poor prognosis. Goals of care discussion, patient not interested entering hospice at this time but agreeable to receiving more education/information regarding it. Consult requested accordingly
Total Critical Care Time__50___ minutes. I was immediately available to the patient and staff. I personally examined, reviewed labs, diagnostic images/reports, interpretations, treatment plans, discussed patient care with other providers and
family or caregivers (if patient is unable to make decisions), entered orders as appropriate and documented the medical record.
Anticipated Discharge: > 48 hours
Subjective/Interval History
-
Date of Service: July 16, 2023
no acute distress resting comfortably in bed. dark bilious diarrhea noted in ostomy. No nicolas blood.
Objective Data
-
Labs:
Laboratory Results
07/15/23 07/16/23
23:12 05:56
Hgb 8.4 L 7.8 L
Hct 23.3 L 21.9 L
Sodium 134 L 136
Potassium 3.8 D 3.3 L
Chloride 115 H 117 H
Carbon Dioxide 19 L 16 L
BUN 17 16
Creatinine 1.1 1.1
Glucose 121 H 103 H
Calcium 7.4 L 7.3 L
Vital Signs:
Vital Signs
Temp Pulse Resp BP Pulse Ox
98 F 75 17 108/67 98
07/15/23 22:00 07/16/23 06:00 07/16/23 06:00 07/16/23 06:00 07/16/23 06:00
I&O
07/15/23 07/16/23 07/17/23
06:59 06:59 06:59
Intake Total 2099 / 2099
Output Total 825 / 825
Balance 1275 / 1275
[2023-07-16] MEDS: KCL 10 MEQ PO (07:57)
[2023-07-16] MEDS: CLARITIN 10 MG PO (07:57)
[2023-07-16] MEDS: LIORESAL 5 MG PO ×3 (07:57→22:08)
--- NOTE | 2023-07-16 08:00 | PTCARENOTE ---
Received pt @ change of shift. Pt. AAOx3, flat affect. SR on monitor. SpO2 97% on RA. Afebrile. +BS, abd soft/round/ascites. Colostomy in place w brown/liq stool; no blood noted. NPO ex meds maintained. Cont bladder, utilized urinal and output
lauro urine. Generalized weakness, DANG, bedrest per orders. Pt. able to reposition self in bed. Instructed on how to report care concerns and call blanco placed w in reach.
--- NOTE | 2023-07-16 09:46 | W.PN.CRS1 ---
Today's Communication / Plan
-
regular diet
Assessment/Plan
-
Assessment: 62 male with stage IV colon cancer, undergoing chemo at [facility], now with a bleeding from the ostomy, hgb 5.3
Plan:
No surgery at this time. Patient is not bleeding any further. If rebleeds, would need a CTA. However, for now, can go back on a regular diet. Follow up at [facility]. Will sign off, please contact us if any surgical issues arise.
Subjective Data
Subjective Data
Date of Service: July 16, 2023
Patient states he has some diarrhea. He has no further bleeding. He is hungry.
Objective Data
-
Vital Signs
Temp Pulse Resp BP Pulse Ox
97.6 F 73 16 96/66 99
07/16/23 07:57 07/16/23 09:00 07/16/23 09:00 07/16/23 09:00 07/16/23 09:00
Intake & Output
07/15/23 07/16/23 07/17/23
06:59 06:59 06:59
Intake Total 2100 / 2175 225 / 225
Output Total 825 / 825
Balance 1275 / 1350 225 / 225
Intake:
IV fluids (Total) 1150 / 1225 225 / 225
0.45%NaCl 1,000 ml @ 75 mls/hr 300 / 375 225 / 225
IV .[id number] YONATAN with Sodium
Bicarbonate 75 Meq Rx#:[id number]
D5lr 1,000 ml @ 75 mls/hr IV . 600 / 600
[id number] YONATAN Rx#:[id number]
KCL 250 / 250
IV piggybacks 200 / 200
Blood Product Amount Infused ( 750 / 750
mL)
Packed Rbc Leukoreduced Unit 250 / 250
[id number]
Packed Rbc Leukoreduced Unit 250 / 250
[id number]
Packed Rbc Leukoreduced Unit 250 / 250
[id number]
Output:
Liquid stool amount 100 / 100
Colostomy 100 / 100
Gastrointestinal tube output ( 450 / 450
Total)
Urine, Voided 275 / 275
Lab Results
07/16/23 05:56
Physical Exam
-
General: No Acute Distress and AOx3
Abdomen: Soft, Non Distended, Non Tender and Other (Colostomy warm and pink with no active bleeding noted)
[2023-07-16] MEDS: KCL ELIXIR 40 MEQ PO (09:55)
--- NOTE | 2023-07-16 10:00 | PTCARENOTE ---
K+ 3.3 this AM, Dr. Parmar made aware and further orders received- see MAR.
[2023-07-16 12:54] LABS: Hematocrit 22.7 % (39.0-52.0); Hemoglobin 8.2 g/dL (13.0-18.0)
--- NOTE | 2023-07-16 12:56 | PTCARENOTE ---
Pt. reassessed, no changes in previous assessment. Colostomy remains w liq/brown stool. Normotensive. No s/s of active bleed. Remains NPO and bedrest per orders. H&H drawn and sent to lab, awaiting results. Also awaiting colorectal input.
@ bedside, updated on plan of care. Call blanco remains w in reach.
--- NOTE | 2023-07-16 14:31 | PTCARENOTE ---
1200 hgb results relayed to Dr. Schaefer. Bedrest order lifted. Assisted pt. x1 OOB to chair. Orthostatic VS negative. Denies dizziness/lightheadedness. Tolerating chair position. Diet advanced per colorectal surg, pt. w lunch try now. remains
@ bedside. Call francis mayen in reach.
[2023-07-16 14:55] LABS: COVID-19 Antigen Negative (Negative)
[2023-07-16 18:17] LABS: Hematocrit 23.4 % (39.0-52.0); Hemoglobin 8.1 g/dL (13.0-18.0)
[2023-07-16 18:31] LABS: Blood Urea Nitrogen 15 mg/dl (9-20); Calcium 7.2 mg/dl (8.4-10.2); Carbon Dioxide 18 mmol/L (22-30); Chloride 115 mmol/L (98-107); Estimated Creatinine Clearance 96 ml/min; Glucose 120 mg/dl (70-99); Potassium 3.5 mmol/L (3.5-5.1); Sodium 135 mmol/L (135-145); eGFR > 60.00
[2023-07-16] MEDS: ZYPREXA 5 MG PO (22:08)
[2023-07-16] MEDS: NEURONTIN 200 MG PO (22:08)
[2023-07-17] VITALS (19 sets, daily range): BP systolic 95–128; BP diastolic 65–84
[2023-07-17 04:51] LABS: Hemoglobin 7.4 g/dL (13.0-18.0); Mean Corp Hgb Conc. 35.7 g/dL (33.0-37.0); Mean Corpuscular Hgb 31.1 pg (27.0-31.0); Red Blood Cell Count 2.38 10^6/uL (4.70-6.10); Red Cell Dist. Width 17.4 % (11.5-14.5); White Blood Cell Count 7.5 10^3/uL (4.8-10.8)
[2023-07-17 05:11] LABS: Hematocrit 20.7 % (39.0-52.0)
--- NOTE | 2023-07-17 05:34 | PTCARENOTE ---
pt alert and oriented x3. pt hopeful to go back home today. meds reviewed. colostomy with liquid brown stool. remained on room air throughout the night. voiding in the urinal.
[2023-07-17 05:39] LABS: ALT (SGPT) 15 U/L (0-50); AST (SGOT) 28 U/L (17-59); Albumin 1.8 g/dl (3.5-5.0); Alkaline Phosphatase 108 U/L (38-126); Blood Urea Nitrogen 14 mg/dl (9-20); Calcium 7.1 mg/dl (8.4-10.2); Carbon Dioxide 19 mmol/L (22-30); Chloride 115 mmol/L (98-107); Estimated Creatinine Clearance 107 ml/min; Glucose 99 mg/dl (70-99); Magnesium 2.6 mg/dl (1.6-2.3); Phosphorus 3.7 mg/dl (2.5-4.5); Potassium 3.4 mmol/L (3.5-5.1); Sodium 135 mmol/L (135-145); Total Bilirubin 0.8 mg/dl (0.2-1.3); Total Protein 4.1 g/dl (6.3-8.2); eGFR > 60.00
[2023-07-17 06:45] LABS: Mean Platelet Volume 9.7 fL (7.4-10.4); Platelet Count 86 10^3/uL (130-400)
--- NOTE | 2023-07-17 07:51 | W.PN.HOSP.TC ---
Today's Communication/Plan
-
discharge
Assessment / Plan
Assessment / Plan
Physical Exam
General: No acute distress appears comfortable at this time
HEENT: PERRLA non-icteric
Respiratory: Clear to auscultation
Cardiac: Regular Rate Rhythm no murmurs
GI: Soft, Normal Bowel Sounds and Ostomy bag no bleeding noted at this time
Neuro: AO x 3 and Nonfocal/grossly intact
Psych: Intact Judgment/Insight
62 y/o male with� rectal bleeding.� He has a history of stage IV colon cancer and has an ostomy and recently treated at [facility] last week for COVID and anemia.� His ostomy bag is now filled up to 3 times with blood.� Denies any abdominal pain.�
Patient has been told that he has a tumor and are unable to cauterize his bleeding.Pt left AMA on 07/11/2023.� Patient was admitted to [facility] from 07/07/23.� He had COVID.� Also had bleeding from the ostomy they did a scope-flex sig?-Through the
scope and was unable to cauterize any bleeding as the bleeding was coming from the tumor.� Patient ended up getting 5 units of blood.� Patient stated that he has had this bleeding October and January also.� He was on chemotherapy since November 2021 and 6
weeks ago his chemo was changed to another medicine.
#Bleeding into ostomy
Patient had similar problem in October, January and also end of June 2023 where he was admitted to [facility].�
He got 5 units of blood at that time and flex sig through the ostomy found the tumor bleeding.� They told him nothing could be done.
Admitted to ICU
IVF and blood product resuscitation received 3U so far with subsequent improvement Hgb 5.4 to 7.2
Tranexamic acid was given
colorectal surgery eval appreciated poor surgical candidate even from palliative perspective, oupt palliative radiation with patient's oncologist recommended
Oncology eval appreciated transfusing 1 PRBC for Hgb 7.4 07/17 goal >7.5
CT angiogram appreciated
-Large volume/massive ascites perhaps slightly increased in comparison to recent prior study.
-Evaluation of the colon for active bleeding markedly limited as a result of the ascites without findings to confirm active colonic bleeding.
-Extensive omental and peritoneal carcinomatosis again seen.
-Left lower quadrant colostomy again noted with likely accompanying parastomal hernia with small volume fluid.
-Essentially stable scattered small low-attenuation hepatic lesions too small to characterize.
-Small simple right renal cyst.
-Small umbilical hernia containing fluid, stable.
-New right lower lobe scattered patchy opacity which could represent pneumonia/pneumonitis. (does not correlate clinically at this time however, no significant respiratory symptoms stable on room air)
#Acute Blood loss Anemia secondary to GI bleed
#hypokalemia
Likely secondary to diarrhea
Monitor and replete as necessary
# Adenocarcinoma of sigmoid� with diverticulosis done in November 2021
Omental metastasis, peritoneal carcinomatosis and massive ascites noted
Patient has not been able to follow-up with his oncologist after CT on 07/06/2023 as she is on vacation.
Resident at [facility] is Dr Albarado
Patient and think that he was on FOLFOX regimen before and changed to a new regimen 6 weeks ago and he has had 3 cycles of that.
Oncology Eval appreciated
Patient and have arranged follow up appointment with his oncologist for tomorrow Tuesday 07/18
# Elevated white count-unclear if secondary to Pegfilgrastim vs stress reactive severe anemia
chest x-ray no acute abn's
urinalysis negative for infection
NGTD stool studies
Blood culture NGTD
leukocytosis since resolved
# Recent COVID-19 infection
Positive Jul 08Tuesday as per
since AMA repeat tests at home negative
Re-check COVID neg 07/16
normally would repeat 07/17 to confirm negative however patient to be discharged today and today would also be patient's last day of quarantine per Hospital's 10 day policy quarantine policy for COVID.
# Severe hypoalbuminemia
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
# SCDs for DVT prophylaxis
# CODE STATUS-DNR
Medically stable at this time for discharge home and outpatient follow up recommendations, next day appointment with patient's oncologist. Script will be provided for repeat lab work 1-2 days results to be forwarded to primary care provider and
oncologist.
Discussed with patient and his
Total Time Preparing Discharge ___50____ minutes including examination of the patient, summary of the hospital stay, instructions for continuing care to all relevant caregivers; and preparation of discharge records, prescriptions, and referral
forms if necessary.
Anticipated Discharge: Today
Subjective/Interval History
-
Date of Service: July 17, 2023
Seen and examined at bedside in no acute distress resting comfortably in bed. Denies any new acute issues, including bleeding in ostomy bag, at this time
Objective Data
-
Labs:
Laboratory Results
07/17/23
04:34
WBC 7.5
Hgb 7.4 L
Hct 20.7 L*
Plt Count 86 L D
Sodium 135
Potassium 3.4 L
Chloride 115 H
Carbon Dioxide 19 L
BUN 14
Creatinine 0.9
Glucose 99
Calcium 7.1 L
Total Bilirubin 0.8
AST 28
ALT 15
Alkaline Phosphatase 108
Vital Signs:
Vital Signs
Temp Pulse Resp BP Pulse Ox
97.3 F 81 17 115/72 97
07/17/23 07:38 07/17/23 05:00 07/17/23 05:00 07/17/23 05:00 07/17/23 05:00
I&O
07/16/23 07/17/23 07/18/23
06:59 06:59 06:59
Intake Total 2100 / 2175 1155 / 1155
Output Total 825 / 825 1050 / 1050 200 / 200
Balance 1275 / 1350 105 / 105 -200 / -200
--- NOTE | 2023-07-17 08:06 | W.PN.INTV ---
Today's Communication / Plan
Recommendations
H/H
CRS recs
Hospice candidate
Assessment
-
Assessment:
Mr Lisa Borrero is a 62/M adm 07-15 with recurrent sigmoid colostomy bleeding. Known h/o stage IV colon cancer, s/p loop sigmoid colostomy November 2021 at , then further treatment at [facility] for metastatic colon cancer, recently adm there on 07-09
for recurrent stomal bleeding, given several blood transfusions, sigmoidoscopy found source of bleeding at colonic tumor, incidentally positive for COVID at that facility. Upon ER arrival his colostomy bag filled up to 5 times on DOA, hypotensive,
given TA dose at ER, CTA abd/p could not confirm active bleeding due to limited study as result of ascites
Impression:
Acute severe anemia
Reportedly colonic tumor is source of bleeding (sigmoidoscopy at [facility]
Chemo-induced neuropathy, on gabapentin
Leukocytosis
Hypokalemia
Recent COVID positive test
Conditions DIGESTER:
Metastatic colon cancer: ascites, omental/peritoneal, liver. On palliative chemo, FOLFOX based regimen until 6 wks ago when regimen was changed
COVID positive test on recent adm to [facility] 07-08, reportedly received 4 doses of remdesivir, unsure if received dexam but was not d/c on dexam, he left AMA on M 07-11
Diverticulosis
Prostate cancer
Former ETOH use
Nonsmoker
DNR
Plan:
O2 protocol
Currently on RA, POx high 90s
Asp precs
IS
Recurrent bleeding through colostomy: events noted in October and Jan 2023 and Jun 2023
Reportedly site of bleeding is colonic tumor per endoscopic evaluation, received up to 5U PRBCs
Reports side effect of diarrhea from previous chemo regimen and also recent chemo regimen
C diff testing negative
IVFs
Observe off atbs for now
Monitor H/H
Transfuse for Hgb<7
So far has received 3 U PRBCs, Hgb 5.4 on adm, up to 8.4, slowly trending down to 7.4 but no obvious bleeding from colostomy
Followed by CRS, currently no plan for surgical intervention
Not a candidate for palliative resection
If rebleeds, CTA for possible embolization
If bleeding stops, consider palliative XRT as outpatient
Rec hospice
Started oral diet
SCDs for DVT proph
D/w Mr and Mrs Borrero at ER
Guarded prognosis
DNR status
Candidate for hospice
Diagnostic tests:
CXR 07-15-23: portable, no infiltrates, R chest port-A-cath. No free air
CTA abd/p 07-15-23: lung bases with patchy R LL posterior infiltrates
Subjective Dataa
Subjective Data
Date of Service:
Date of Service: July 17, 2023
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
Subjective:
No major events reported overnight
No further rhythm sutures required
Patient realizes that he is not a surgical candidate
Review of Systems
General: Fever (n), Sweats (n), Chills (n) and Satisfactory Appetite (n)
HEENT: Epistaxis (n) and Dysphagia (n)
Cardiopulmonary: Dyspnea (n) and Cough (n)
GI: Abdominal Pain (n), Nausea (n), Vomiting (n) and Diarrhea
Neuro: Weakness
Objective Data
Data Reviewed
Vital Signs / I&O / Oxygen:
Vital Signs
Temp Pulse Resp BP Pulse Ox
97.3 F 81 17 115/72 97
07/17/23 07:38 07/17/23 05:00 07/17/23 05:00 07/17/23 05:00 07/17/23 05:00
Intake and Output
07/16/23 07/17/23 07/18/23
06:59 06:59 06:59
Intake Total 2100 / 2175 1155 / 1155
Output Total 825 / 825 1050 / 1050 200 / 200
Balance 1275 / 1350 105 / 105 -200 / -200
SaO2 97
Nasal Cannula flow liters per 2
minute
Physical Exam
HEENT: Normocephalic and Moist Mucous Membranes
Cardiovascular: Regular Rhythm and Peripheral Edema (n)
Respiratory: Clear and Non-Labored Respirations
GI: Soft, Non Distended and Other (colostomy)
Neurology: Awake, AO x 3 and No Motor Deficits
Skin: Dry
Labs/Micro/Reports
Lab Data
07/17/23 04:34
07/17/23 04:34
Microbiology
07/16/23 05:56 Blood/Venous Blood Culture - Preliminary
No Growth in 24 hours- Final report to follow
07/15/23 17:42 Feces/Stool Salmonella/Shigella Culture - Preliminary
Culture in Progress
07/15/23 17:42 Feces/Stool Campylobacter Culture - Preliminary
Culture in Progress
07/15/23 17:42 Feces/Stool C. difficile GDH Antigen & Toxins - Final
Negative for toxigenic C.difficile
--- NOTE | 2023-07-17 08:30 | PTCARENOTE ---
Received pt @ change of shift. AAOx3, no c/o pain. SR on monitor. SpO2 96% on RA. Afebrile. L colostomy in place w brown/liq stool. No s/s of active bleeding. Cont of urine, urinal w in reach. Generalized weakness, DANG, able to reposition self
in bed. R SQ port in place, patent, dressing c/d/i. Meds refused this AM. Instructed on how to report care concerns and call blanco placed w in reach.
[2023-07-17] MEDS: LIORESAL PO ×2 (08:37→15:42)
[2023-07-17] MEDS: KCL PO (08:37)
[2023-07-17] MEDS: CLARITIN PO (08:37)
--- NOTE | 2023-07-17 09:29 | CON.ONC ---
Impression
Impression
Advanced colon carcinoma primary disease intra-abdominal metastases
Ostomy bleeding likely secondary to invasive malignancy
Anemia
Consumptive coagulopathy PT18/PTT 40.4
Plan
Plan
If active bleeding recurs transfuse 2 units of FFP
Transfusion additional unit of packed red blood cells for hemoglobin of 7.4 g/dL
Continue to support hemoglobin with active bleeding less than 7.5 g/dL
Discussed options for therapy based on sigmoidoscopy results possible external beam patient known to [facility] will attempt to get records regarding his recent chemotherapy treatment would be prudent to hold VEGF inhibitor therapy if currently
part of the tx
Follow-up with [facility]
Patient History
History of Present Illness
62 y/o male with� rectal bleeding.� He has a history of stage IV colon cancer diagnosed at [facility] 18 months ago currently under treatment on second line therapy at [facility] last week for COVID and anemia.� On presentation he had
significant blood loss from his ostomy. This is similar to his postoperative state and likely related to therapy and active disease. Patient is a poor historian he is unclear of what a chemotherapy drugs he is on I suspect a second line therapy it
is FOLFIRI possibly with bevacizumab. Patient has been told that he has a tumor and are unable to cauterize his bleeding. Pt left AMA on 07/11/2023.� Patient was admitted to [facility] from 07/07/23.� He was diagnosis with COVID at [facility]. Also
had bleeding from the ostomy they did a scope-flex sig?-Through the scope and was unable to cauterize any bleeding as the bleeding coming from the tumor.� Patient was supported with 5 units of PRBC.� Patient stated he has not noted significant
bleeding since Tuesday.�
Past-Medical/Surgical History
Past Medical History
C6 herniated disc, diverticulosis with history of diverticulitis, inoperable colon cancer, prostate cancer, anemia, chronic fatigue, COVID-19 infection-recent
Past Surgical History:
Prostatectomy, wisdom teeth surgery, colorectal surgery
Social History
Tobacco: Non-smoker
Alcohol: Other (Used to drink 1 drink every day until he was diagnosed with colon cancer in 2021.� Does not drink since then.)
Drug: None
Personal:
Living: With Family
Family History
Family History: CAD and Cancer (Father with history of prostate cancer mother B-cell lymphoma)
Patient Medication
Medication Instructions Recorded Confirmed Last Taken Type
baclofen 5 mg tablet 5 mg PO TIDPRN PRN hipcups 07/15/23 07/15/23 3 Days Ago History
~07/12/23
diphenoxylate-atropine 2.5 1 tab PO QIDPRN PRN diarrhea 07/15/23 07/15/23 Unknown History
mg-0.025 mg tablet
gabapentin 100 mg capsule 200 mg PO HS Pain 07/15/23 07/15/23 07/14/23 History
loperamide 2 mg capsule 4 mg PO TIDPRN PRN diarrhea 07/15/23 07/15/23 1 Week Ago History
~07/08/23
loratadine 10 mg tablet (Claritin) 10 mg PO DAILY Allergies 07/15/23 07/15/23 07/13/23 History
olanzapine 5 mg tablet 5 mg PO HS Mental Health 07/15/23 07/15/23 Unknown History
ondansetron 8 mg disintegrating 8 mg PO Q8H PRN nausea 07/15/23 07/15/23 Unknown History
tablet
pegfilgrastim-bmez 6 mg/0.6 mL 6 mg SC . EVERY OTHER WEEK white 07/15/23 07/15/23 Unknown History
subcutaneous syringe (Ziextenzo) blood cell count
potassium chloride 10 mEq 10 meq PO DAILY Electrolyte 07/15/23 07/15/23 2 Days Ago History
tablet,extended release(part/cryst) Repletion ~07/13/23
potassium, sodium phosphates 280 2 packet PO BID Electrolyte 07/15/23 07/15/23 2 Days Ago History
mg-160 mg-250 mg oral powder Repletion ~07/13/23
packet (Phos-NaK)
prochlorperazine maleate 10 mg 10 mg PO Q6H PRN nausea 07/15/23 07/15/23 Unknown History
tablet
vitamin B complex 1 tab PO DAILY Supplement 07/15/23 07/15/23 07/13/23 History
Active Medications
Generic Name Dose Route Start Last Admin
Trade Name Freq PRN Reason Stop Dose Admin
Baclofen 5 mg 07/15/23 16:09 07/17/23 08:37
Baclofen 5 Mg Tablet PO 08/12/23 16:08 Not Given
TID YONATAN
Diphenoxylate HCl/Atropine 1 tablet 07/15/23 16:09
Diphenoxylate/Atropine Tablet PO 08/12/23 16:08
QIDPRN PRN
diarrhea
Gabapentin 200 mg 07/15/23 22:00 07/16/23 22:08
Gabapentin 100 Mg Capsule PO 08/12/23 21:59 200 mg
HS YONATAN Administration
Loperamide HCl 4 mg 07/15/23 16:09
Loperamide 2 Mg Capsule PO 08/12/23 16:08
TIDPRN PRN
diarrhea
Loratadine 10 mg 07/16/23 08:00 07/17/23 08:37
Loratadine 10 Mg Tablet PO 08/13/23 07:59 Not Given
DAILY YONATAN
Olanzapine 5 mg 07/15/23 22:00 07/16/23 22:08
Olanzapine 5 Mg Tablet PO 08/12/23 21:59 5 mg
HS YONATAN Administration
Ondansetron HCl 8 mg 07/15/23 16:20
Ondansetron 4 Mg (Orally-Disintegrating) Tablet PO 08/12/23 16:19
Q8HPRN PRN
nausea
Potassium Chloride 10 meq 07/15/23 16:09 07/17/23 08:37
Potassium Chloride 10 Meq Extended Release Tablet PO 08/12/23 16:08 Not Given
DAILY YONATAN
Sodium Chloride 0 flush 07/15/23 17:00
Sodium Chloride 0.9% (Flush) Syringe IV 08/12/23 16:59
PER PROTOCOL YONATAN
Review of Systems
-
12 point review of systems fails to elicit additional complaints other than those reviewed in the HPI.
Physical Exam
-
Physical Exam
General: Alert oriented
Respiratory: Clear
Cardiac: Regular Rhythm
GI: Soft, Normal Bowel Sounds and Ostomy (Fresh blood in the ostomy bag)
Neuro: AO x 3 and Nonfocal/grossly intact
Psych: Intact Judgment/Insight
Extremities: without pretibial edema or palpable cord
Labs
Lab Results
WBC 7.5 10^3/uL (4.8-10.8) 07/17/23 04:34
RBC 2.38 10^6/uL (4.70-6.10) L 07/17/23 04:34
Hgb 7.4 g/dL (13.0-18.0) L 07/17/23 04:34
Hct 20.7 % (39.0-52.0) L* 07/17/23 04:34
MCV 87.0 fL (80.0-94.0) 07/17/23 04:34
MCH 31.1 pg (27.0-31.0) H 07/17/23 04:34
MCHC 35.7 g/dL (33.0-37.0) 07/17/23 04:34
RDW 17.4 % (11.5-14.5) H 07/17/23 04:34
Plt Count 86 10^3/uL (130-400) L D 07/17/23 04:34
MPV 9.7 fL (7.4-10.4) 07/17/23 04:34
Creatinine 0.9 mg/dL (0.7-1.3) 07/17/23 04:34
Vital Signs
Vital Signs
Temp Pulse Resp BP Pulse Ox
97.3 F 86 13 104/80 99
07/17/23 07:38 07/17/23 08:00 07/17/23 08:00 07/17/23 08:00 07/17/23 08:58
--- NOTE | 2023-07-17 10:14 | CM ---
Addendum entered by Nely Norton 07/17/23 13:18:
Initial assessment completed with , Jessy, via phone
Pharmacy verified: [facility] [place]
reports that they live in a 3 story home including basement; adult daughter lives in the home; 1 step in; 12-13 steps between floors; powder room on the 1st floor; patient's bedroom and bath on the 2nd floor; bath has a shower stall
PLOF: was independent with ambulation and ADLs; no longer driving; needs assistance going up the stairs
DME: has a walker and commode
Transport: will provide ride home
Plan: Discharge to home today after blood transfusion; declined hospice at this time
Original Note:
Case Management Consult completed; hospice referral sent to volunteer recruiter nutritional assistant, Nurys Toledo; [facility]
--- NOTE | 2023-07-17 10:37 | HOSPNOTE ---
Referral received. Called and spoke to spouse Jessy. Explained hospice and its philosophy. Jessy was going to speak to patient and her sister in law Hope. Direct phone number provided. CM and attending made aware.
--- NOTE | 2023-07-17 11:57 | PTCARENOTE ---
1 unit PRBC transfusing via R SQ port- see TAR. Plan to d/c s/p blood transfusion per Dr. Parmar. Pt and @ bedside updated on plan of care.
--- NOTE | 2023-07-17 12:15 | HOSPNOTE ---
Update: Spoke to spouse Jessy. The plan is for patient to go home today after 1 unit of PRBC and repeat hemoglobin check in a couple of days. Reviewed also palliative care information as well with Jessy. They have a telehealth appointment with
oncologist tomorrow as well. Jessy will reach out to hospice if it is wanted. At this time, not warranted. CM and attending updated
--- NOTE | 2023-07-17 15:32 | W.DCSUMMARY ---
Discharge Summary
Discharge Data
Date of Admission: 07/15/23
Date of Discharge: 07/17/23
-
Pending Results: Yes
Additional Pending Results:
stool culture study results
Hospital Course
62 y/o male presented with bleeding ostomy site, history of stage IV colon cancer. Patient was recently treated at [facility] week [facility] for COVID and anemia.� His ostomy bag filled up 3 times with blood.� Denied any abdominal pain.� Patient had been
told that he had a tumor and they were unable to cauterize his bleeding. Pt left AMA on 07/11/2023.� Patient was admitted to [facility] from 07/07/23 with COVID. Patient ended up getting 5 units of blood.� He reported having this bleed in October and
January also.� He was on chemotherapy since November 2021 and 6 weeks ago his chemo was changed to another medicine. Admitted to ICU, IVF and blood product resuscitation received 3U so far with subsequent improvement Hgb 5.4 to 7.2. Tranexamic acid was
also given. Colorectal surgery evaluated poor surgical candidate even from palliative perspective, oupt palliative radiation with patient's oncologist was recommended.
CT angiogram appreciated
-Large volume/massive ascites perhaps slightly increased in comparison to recent prior study.
-Evaluation of the colon for active bleeding markedly limited as a result of the ascites without findings to confirm active colonic bleeding.
-Extensive omental and peritoneal carcinomatosis again seen.
-Left lower quadrant colostomy again noted with likely accompanying parastomal hernia with small volume fluid.
-Essentially stable scattered small low-attenuation hepatic lesions too small to characterize.
-Small simple right renal cyst.
-Small umbilical hernia containing fluid, stable.
-New right lower lobe scattered patchy opacity which could represent pneumonia/pneumonitis. (did not correlate clinically at the time however, no significant respiratory symptoms stable on room air)
Bleeding resolved, otherwise, medically stable patient was discharged home with next day oncology appointment and outpatient follow up recommendations.
Discharge Plan
-
Patient Disposition: Home (Routine Discharge)
Discharge Diagnosis/Procedures: Advance Colon Cancer w/ metastases, ostomy bleeding likely due to invasive malignancy, anemia, Recent COVID positive 07/08 currently tested negative as of 07/16 no significant respiratory symptoms, Hypokalemia likely
due to diarrhea, neuropathy due to chemotherapy
Condition: Fair
Diet: Regular
Activity: As tolerated
Driving Restrictions: Not until seen by your Dr
Bathing Restrictions: None
Blood Work: Repeat CBC and BMP in 1-2 days of discharge with results to be forwarded to primary care provider and oncologist. Script has been provided to facilitate.
Referrals:
Robert Bettencourt, DO [Family Provider] -
Prescriptions:
Continued
loperamide 2 mg Capsule
4 mg PO TIDPRN PRN (Reason: diarrhea)
olanzapine 5 mg Tablet
5 mg PO HS
diphenoxylate-atropine 2.5-0.025 mg Tablet
1 tab PO QIDPRN PRN (Reason: diarrhea)
Patient Comments:
07/15/2023, pt. filled this med. on 05/20/2023 for 30 tablets according to PDMP.
prochlorperazine maleate 10 mg Tablet
10 mg PO Q6H PRN (Reason: nausea)
ondansetron 8 mg Tablet,Disintegrating
8 mg PO Q8H PRN (Reason: nausea)
vitamin B complex Tablet
1 tab PO DAILY
gabapentin 100 mg Capsule
200 mg PO HS
loratadine [Claritin] 10 mg Tablet
10 mg PO DAILY
potassium chloride 10 mEq tablet,ER particles/crystals
10 meq PO DAILY
Patient Comments:
07/15/2023, prescribed BID but pt. only takes once daily in the morning.
potassium, sodium phosphates [Phos-NaK] 280-160-250 mg Powder In Packet
2 packet PO BID
baclofen 5 mg Tablet
5 mg PO TIDPRN PRN (Reason: hiccups)
Patient Comments:
07/15/2023, pt. has since sopped taking b/c his hiccups resided.
Ziextenzo 6 mg/0.6 mL Syringe
6 mg SC . EVERY OTHER WEEK
Patient Comments:
07/15/2023, not in pt.'s pharmacy records or in [facility].
Discharge Orders:
Discharge Patient (As Directed); Ordered 07/17/23
Ordered By: Catherine Parmar
Discharge Date and Time
Discharge Date/Time: 07/17/23 16:38
--- NOTE | 2023-07-17 16:30 | PTCARENOTE ---
Discharge instructions reviewed w pt and . VAT removed R SC port. #20 R AC removed. client services vice president d/c'd. Imaging discs given to pt.'s . Pt. discharged via wheelchair to home w . No further needs from this RN.
== END 2023-07-17 16:38 | disposition home or self-care (01) | DRG 374 ==
LOC: ICU 14:43
PROVIDERS: Nurse Practitioner Primary Care; Physician Assistant; ADMITTING PHYSICIAN Hospitalist; ATTENDING PHYSICIAN Internal Medicine; CONSULT PHYSICIAN Internal Medicine Hematology & Oncology; CONSULT PHYSICIAN Internal Medicine Pulmonary Disease; CONSULT PHYSICIAN Surgery; EMERGENCY PHYSICIAN Emergency Medicine; FAMILY PHYSICIAN Family Medicine
PROC: 30233N1 Transfusion of Nonautologous Red Blood Cells into Peripheral Vein, Percutaneous Approach (ICD-10-PCS; 2023-07-15)
DX: C18.7 Malignant neoplasm of sigmoid colon (principal); D65 Disseminated intravascular coagulation [defibrination syndrome]; C78.6 Secondary malignant neoplasm of retroperitoneum and peritoneum; D62 Acute posthemorrhagic anemia; K92.2 Gastrointestinal hemorrhage, unspecified; R18.8 Other ascites; K94.01 Colostomy hemorrhage; C79.89 Secondary malignant neoplasm of other specified sites; E87.6 Hypokalemia; E88.09 Other disorders of plasma-protein metabolism, not elsewhere classified; Z66 Do not resuscitate; D63.0 Anemia in neoplastic disease; I95.9 Hypotension, unspecified; T45.1X5A Adverse effect of antineoplastic and immunosuppressive drugs, initial encounter; G62.0 Drug-induced polyneuropathy; Z86.16 Personal history of COVID-19
CPT/HCPCS: 36430; 71045; 74174; 80048; 80053; 81003; 82306; 82607; 82728; 83540; 83550; 83735; 84100; 85014; 85018; 85025; 85027; 85610; 85730; 86850; 86900; 86901; 86920; 87040; 87045; 87046; 87324; 87427; 87449; 87811; 96361; 96374; 96375; 99291; J7030; P9016; Q9967

== ENCOUNTER 2023-07-19 19:33 | Inpatient (IN) | payer OTHER, SELFPAY ==
[2023-07-19] VITALS (15 sets, daily range): BP systolic 78–106; BP diastolic 59–69; BMI 24.7
--- NOTE | 2023-07-19 17:19 | ED.GENMED ---
History of Present Illness
General
Chief Complaint: Bowel Problem
Source: patient
Exam Limitations: none
Time Seen by Provider: 07/19/23 17:13
Nursing documentation reviewed up to this point in time: agreed with
Travel History
Have you had any contact with someone who has COVID-19?: No
Do you have any symptoms of coronavirus? Fever > 100 degrees, chills, cough, shortness of breath, sore throat, loss of taste or smell, muscle aches, or headache?: No
History of Present Illness
History of Present Illness:
62-year-old male presents emergency department complaining of bleeding from colostomy. He was recently hospitalized for the same. He states he is Mbit total of 5 bags for blood in the past hour. It did slow down. He also states this happened
last night. He was discharged from hospital on 07/17/2023 and had received possible transfusions.
Past History
Past History
ED Past Medical History: Cancer (Prostate, recent dx with stage 4 colon ca)
ED Past Surgical History: Bowel resection (colostomy 12/01/21) and Urological
Social History
Tobacco: Non-smoker
Alcohol: Occasional
Drug: None
Personal:
Living: with family
Employment: Employed
Review of Systems
Review of Systems
Allergies reviewed?: Yes
All Other Systems: Not applicable
Constitutional: Reports fatigue
EENT: Reports no symptoms
Respiratory: Reports no symptoms
Cardiac: Reports no symptoms
ABD/GI: Reports other (Bleeding from colostomy)
: Reports no symptoms
Musculoskeletal: Reports no symptoms
Skin: Reports no symptoms
Neurological: Reports no symptoms
Endocrine: Reports no symptoms
Hematologic/Lymphatic: Reports no symptoms
Psychiatric: Reports no symptoms
Phy Exam
Physical Exam
Physical Exam:
Physical Exam
General: Pale, chronic ill appearance
Neck: supple. no meningeal signs. normal posterior pharynx
Heart: s1/s2 regular rate and rhythm, no murmur. equal radial
pulses.
HEENT: Pupils equal round reactive to light, EOMI
Lungs: no acute respiratory distress. clear bilaterally
Abdomen: normal bowel sounds. not tender. no CVAT, colostomy with dark blood in colostomy bag
Neuro: alert and oriented. no focal neurological deficits cranial nerves II through XII intact
Skin: no rash
Psychiatric: well kept. interactive and cooperative
Extremities: no edema. no calf tenderness. negative homans. good distal pulses
Course
Orders/Labs/Results
Orders:
Orders
07/19/23 17:17
Type+Screen Urgent
Complete Blood Count/With Diff Urgent
Comprehensive Metabolic Panel Urgent
07/19/23 17:47
* Blood Bank Products Urgent
Dr's Orders: 1 unit prbcs
Blood Bank Products: *Packed RBC Leuko(PRBC's)
Quantity: 1
Transfuse Today: Yes
Reason: Bleeding
Abnormal Lab Results
07/19/23
17:17
WBC 18.0 H 10^3/uL
(4.8-10.8)
RBC 2.26 L 10^6/uL
(4.70-6.10)
Hgb 7.0 L g/dL
(13.0-18.0)
Hct 19.8 L* %
(39.0-52.0)
RDW 19.2 H %
(11.5-14.5)
Abs Immat Gran (auto) 0.3 H 10^3/uL
(0-0.05)
Absolute Neuts (auto) 15.7 H 10^3/uL
(1.4-6.5)
Absolute Lymphs (auto) 1.1 L 10^3/uL
(1.2-3.4)
Absolute Monos (auto) 0.8 H 10^3/uL
(0.1-0.6)
Immature Gran % 1.8 H %
(0-0.5)
Neutrophils % 87.0 H %
(42.2-75.2)
Lymphocytes % 6.2 L %
(20.5-51.1)
Sodium 131 L mmol/L
(135-145)
Potassium 3.3 L mmol/L
(3.5-5.1)
Chloride 111 H mmol/L
(98-107)
Carbon Dioxide 17 L mmol/L
(22-30)
Glucose 120 H mg/dl
(70-99)
Calcium 7.0 L mg/dl
(8.4-10.2)
Total Protein 4.3 L g/dl
(6.3-8.2)
Albumin 1.9 L g/dl
(3.5-5.0)
07/19/23 17:17
07/19/23 17:17
Vital Signs
Initial and Last Documented VS:
Initial Vital Signs
BP
106/67
07/19/23 17:06
Last Documented Vital Signs
Temp Pulse Resp BP Pulse Ox
97.8 F 95 12 106/67 93
07/19/23 17:07 07/19/23 17:15 07/19/23 17:15 07/19/23 17:07 07/19/23 17:15
MDM/Problems Addressed
Differential Diagnosis Includes:
Bleeding tumor, GI bleed
MDM/Problems Addressed:
62-year-old male with GI bleed from bleeding sigmoid tumor. 1 unit packed red blood cells ordered. Admit to hospitalist.
Chronic conditions affecting care: Cancer (Colon cancer)
Acute Exacerbation and/or Progression of Chronic Illness: Cancer (Colon cancer)
*Pulse Oximetry
Patient hypoxic: no
*EKG
Interpreted by ED Provider?: NA
*Tax Examining Technician Interpretation
Rate: normal
Interpretation: normal
Heart Rate: 98
Rhythm: sinus
*Critical Care Note
Total Time (30-74mins, 75-104mins- exclusive of procedures): 30
comment:
Critical care statement: A total of 30 minutes of critical care time was provided for this patient. This includes management of unstable vital signs, evaluation of the patient at bedside, reviewing the patient's pertinent medical records, discussion
with consultants, review of old EKGs and review of pertinent medical records. This time with separate from time utilized to perform the aforementioned documented procedures
Data Reviewed
Review of Other/Old Records Reveals: Progress Notes (Seen by colorectal surgery, nonoperative sigmoid tumor)
Patient Management
Social determinants of health affecting care: Living situation
Discussion with other providers: Hospitalist
Escalation/DeEscalation of care consider admission/obs:
Admit indicated
ED Attending Note
-
Portions of this chart may have been created with voice recognition software.� Occasional wrong word or��sound alike� substitutions may have occurred due to the inherent limitations of voice recognition software.
Discharge Plan
Departure
Patient Disposition: Admit
Date of Disposition: 07/19/23
Time of Disposition: 17:54
Admit to: IMU
Presentation/result/management discussed w/ accepting MD/DO: Hospitalist
Patient with high blood pressure during this ER visit?: No
Condition: Fair
Discharge Problem:
Acute GI bleeding, Malignant neoplasm of sigmoid colon, Hyponatremia
Prescriptions:
No Action
loperamide 2 mg Capsule
4 mg PO TIDPRN PRN (Reason: diarrhea)
olanzapine 5 mg Tablet
5 mg PO HS
diphenoxylate-atropine 2.5-0.025 mg Tablet
1 tab PO QIDPRN PRN (Reason: diarrhea)
Patient Comments:
07/15/2023, pt. filled this med. on 05/20/2023 for 30 tablets according to PDMP.
prochlorperazine maleate 10 mg Tablet
10 mg PO Q6H PRN (Reason: nausea)
ondansetron 8 mg Tablet,Disintegrating
8 mg PO Q8H PRN (Reason: nausea)
vitamin B complex Tablet
1 tab PO DAILY
gabapentin 100 mg Capsule
200 mg PO HS
loratadine [Claritin] 10 mg Tablet
10 mg PO DAILY
potassium chloride 10 mEq tablet,ER particles/crystals
10 meq PO DAILY
Patient Comments:
07/15/2023, prescribed BID but pt. only takes once daily in the morning.
potassium, sodium phosphates [Phos-NaK] 280-160-250 mg Powder In Packet
2 packet PO BID
baclofen 5 mg Tablet
5 mg PO TIDPRN PRN (Reason: hiccups)
Patient Comments:
07/15/2023, pt. has since sopped taking b/c his hiccups resided.
Ziextenzo 6 mg/0.6 mL Syringe
6 mg SC . EVERY OTHER WEEK
Patient Comments:
07/15/2023, not in pt.'s pharmacy records or in [facility].
Interventions
Interventions:
*Risk Screen - Suicide Last Done: 07/19/23 17:06
*General Assessment Last Done: 07/19/23 17:06
*Neglect/Abuse Screening Last Done: 07/19/23 17:06
ED- Fall Risk Assessment Last Done: 07/19/23 17:11
*ED COVID-19 Vaccine History Last Done: 07/19/23 17:06
OH-Pszvvd-Ysmrmcskwd Assessment Last Done: 07/19/23 17:11
[2023-07-19 17:27] LABS: % Basophils 0.6 % (0-2); % Eosinophils 0.1 % (0-6); % Immature Granulocytes 1.8 % (0-0.5); % Lymphocytes 6.2 % (20.5-51.1); % Monocytes 4.3 % (1.7-9.3); Absolute Basophils 0.1 10^3/uL (0-0.2); Absolute Immature Granulocytes 0.3 10^3/uL (0-0.05); Absolute Lymphocytes 1.1 10^3/uL (1.2-3.4); Absolute Monocytes 0.8 10^3/uL (0.1-0.6); Absolute Neutrophils 15.7 10^3/uL (1.4-6.5); Mean Corp Hgb Conc. 35.4 g/dL (33.0-37.0); Mean Corpuscular Volume 87.6 fL (80.0-94.0); Mean Platelet Volume 9.2 fL (7.4-10.4); Nucleated Red Blood Cells % 0.1 % (-); Platelet Count 195 10^3/uL (130-400); Red Blood Cell Count 2.26 10^6/uL (4.70-6.10); Red Cell Dist. Width 19.2 % (11.5-14.5)
[2023-07-19 17:29] LABS: Hematocrit 19.8 % (39.0-52.0)
[2023-07-19 17:44] LABS: ALT (SGPT) 17 U/L (0-50); AST (SGOT) 34 U/L (17-59); Albumin 1.9 g/dl (3.5-5.0); Alkaline Phosphatase 118 U/L (38-126); Blood Urea Nitrogen 10 mg/dl (9-20); Carbon Dioxide 17 mmol/L (22-30); Chloride 111 mmol/L (98-107); Estimated Creatinine Clearance 107 ml/min; Glucose 120 mg/dl (70-99); Potassium 3.3 mmol/L (3.5-5.1); Sodium 131 mmol/L (135-145); Total Protein 4.3 g/dl (6.3-8.2); eGFR > 60.00
--- NOTE | 2023-07-19 19:01 | HPS.HSE ---
Addendum entered and electronically signed by Freeman Caldwell MD 07/19/23 19:12:
IV fluid bolus ordered.
Original Note:
Family Physician
-
Family Physician: Robert Bettencourt
Chief Complaint
-
bleeding from ostomy
History of Present Illness
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
presenting for bleeding from colostomy since yesterday. Patient had 5 colostomy bags full of blood intermittently since yesterday. Patient felt weak and had some dizziness this morning. He denies any chest pain or shortness of breath. He denies
any nausea vomiting or abdominal pain.
Patient was discharged 2 days ago for bleeding from colostomy. Patient received 3 units blood transfusions. Patient was seen by colorectal but no surgical procedure could be performed. Patient was recommended outpatient palliative radiation.
Medical History
Past Medical History
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
Past Surgical History: Reports None
Social History
Tobacco: Non-smoker
Alcohol: Former
Drug: None
Family History
Family History: Not pertinent
Allergies / Home Medications
Allergies reflects when Allergies were last updated in [facility].
Home Medications with original date entered in [facility]
Allergy/Medication List:
Allergies
Allergy/AdvReac Type Severity Reaction Status Date / Time
No Known Allergies Allergy Verified 07/15/23 11:12
Home Medications
baclofen 5 mg tablet 5 mg PO TIDPRN PRN hiccups 07/15/23
diphenoxylate-atropine 2.5 mg-0.025 mg tablet 1 tab PO QIDPRN PRN diarrhea 07/15/23
gabapentin 100 mg capsule 200 mg PO HS Pain 07/15/23
loperamide 2 mg capsule 4 mg PO TIDPRN PRN diarrhea 07/15/23
loratadine 10 mg tablet (Claritin) 10 mg PO DAILY Allergies 07/15/23
olanzapine 5 mg tablet 5 mg PO HS Mental Health 07/15/23
ondansetron 8 mg disintegrating tablet 8 mg PO Q8H PRN nausea 07/15/23
pegfilgrastim-bmez 6 mg/0.6 mL subcutaneous syringe (Ziextenzo) 6 mg SC . EVERY OTHER WEEK white blood cell count 07/15/23
potassium chloride 10 mEq tablet,extended release(part/cryst) 10 meq PO DAILY Electrolyte Repletion 07/15/23
potassium, sodium phosphates 280 mg-160 mg-250 mg oral powder packet (Phos-NaK) 2 packet PO BID Electrolyte Repletion 07/15/23
prochlorperazine maleate 10 mg tablet 10 mg PO Q6H PRN nausea 07/15/23
vitamin B complex 1 tab PO DAILY Supplement 07/15/23
Review of Systems
-
History Source: Patient
A 12 point ROS was completed and negative except as noted: Yes
Constitutional: Reports No Symptoms
EENT: Reports No Symptoms
Respiratory: Reports No Symptoms
Cardiac: Reports No Symptoms
Abdomen/GI: Reports See HPI
: Reports No Symptoms
Musculoskeletal: Reports No Symptoms
Skin: Reports No Symptoms
Neurological: Reports No Symptoms
Endocrine: Reports No Symptoms
Hematologic/Lymphatic: Reports No Symptoms
Psych: Reports No Symptoms
Physical Exam
Vital Signs
Vital Signs
Temp Pulse Resp BP Pulse Ox
97.6 F 97 15 78/59 97
07/19/23 18:44 07/19/23 18:45 07/19/23 18:45 07/19/23 18:44 07/19/23 18:45
Physical Exam
General: Well Developed, Well Nourished and No Apparent Distress
HEENT: NormoCephalic, Moist mucous membranes and Atraumatic
Respiratory: Clear
Cardiac: S1/S2 and Regular Rhythm; No Murmur or Rub
GI: Soft, Non Tender, Non Distended and Normal Bowel Sounds; No Organomegaly
Rectal: Deferred by Provider
Musculoskeletal: No Clubbing, No Cyanosis and No Edema
Skin: No Rash
Neuro: Nonfocal/grossly intact
Laboratory Results
-
07/19/23 17:17
07/19/23 17:17
Laboratory Results
Total Bilirubin 1.0 mg/dl (0.2-1.3) 07/19/23 17:17
AST 34 U/L (17-59) 07/19/23 17:17
ALT 17 U/L (0-50) 07/19/23 17:17
Alkaline Phosphatase 118 U/L (38-126) 07/19/23 17:17
Data Reviewed
-
Lab Data: Labs Reviewed by me
Old Records: Reviewed
Impression/Plan
-
IMPRESSION:
PLAN:
# Colostomy bleeding secondary to invasive malignancy
# Acute blood loss anemia/hemorrhagic shock secondary to GI bleed
-Systolic blood pressure of 80s
-Bleeding currently resolved
-Hemoglobin of 7
-Transfusion goal 7.5
-NPO
-1 unit of blood
-If patient rebleeds then will require CTA of abdomen pelvis for potential embolization
-Colorectal consulted
-Plan is for outpatient palliative radiation with Iron Adamson as per oncology during last admission
# Recent consumptive coagulopathy
-Recheck coags
# Hypokalemia secondary to GI losses
-Replete potassium
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
Severe hypoalbuminemia
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
-Continue gabapentin
History of prostate cancer
History of diverticulosis
DNR/DNI
DVT prophylaxis�SCDs
NPO
[2023-07-19] MEDS: NSS 1000 IV (20:23)
[2023-07-19 20:37] LABS: INR 1.48; PT 17.8 Sec (11.4-14.6)
[2023-07-19] MEDS: SODIUM BICARBONATE 1075 MEQ IV (21:46)
[2023-07-19] MEDS: KCL 270 MEQ IV (21:51)
[2023-07-19 22:41] LABS: Hematocrit 23.1 % (39.0-52.0); Hemoglobin 8.1 g/dL (13.0-18.0)
[2023-07-19] MEDS: CALCIUM GLUCONATE 130 MG IV (22:42)
[2023-07-19] MEDS: NEURONTIN 200 MG PO (22:51)
[2023-07-19] MEDS: ZYPREXA 5 MG PO (22:51)
--- NOTE | 2023-07-19 23:37 | PTCARENOTE ---
rec`s pt from ED. pt AAOx3, very pleasant. generalized weakness throughout. SR on monitor. started on bicarb. pt has sub Q power port and a left hand 20g. room air. ostomy on LLQ with minimal blood drainage. pt uses urinal. SCDs in place. call blanco
in reach. safe environment maintained.
[2023-07-20] VITALS (44 sets, daily range): BP systolic 81–111; BP diastolic 56–78; BMI 22.9
[2023-07-20 04:31] LABS: % Basophils 0.5 % (0-2); % Eosinophils 0.1 % (0-6); % Immature Granulocytes 1.1 % (0-0.5); % Lymphocytes 13.6 % (20.5-51.1); % Neutrophils 79.7 % (42.2-75.2); Absolute Immature Granulocytes 0.1 10^3/uL (0-0.05); Absolute Monocytes 0.4 10^3/uL (0.1-0.6); Mean Corp Hgb Conc. 34.5 g/dL (33.0-37.0); Mean Corpuscular Hgb 30.5 pg (27.0-31.0); Mean Corpuscular Volume 88.5 fL (80.0-94.0); Mean Platelet Volume 9.6 fL (7.4-10.4); Nucleated Red Blood Cells % 0 % (-); Platelet Count 107 10^3/uL (130-400); Red Blood Cell Count 2.26 10^6/uL (4.70-6.10); Red Cell Dist. Width 17.8 % (11.5-14.5); White Blood Cell Count 7.6 10^3/uL (4.8-10.8)
[2023-07-20 04:49] LABS: Hemoglobin 6.9 g/dL (13.0-18.0)
[2023-07-20 05:01] LABS: ALT (SGPT) 15 U/L (0-50); AST (SGOT) 27 U/L (17-59); Albumin 1.7 g/dl (3.5-5.0); Alkaline Phosphatase 112 U/L (38-126); Blood Urea Nitrogen 10 mg/dl (9-20); Calcium 7.4 mg/dl (8.4-10.2); Carbon Dioxide 22 mmol/L (22-30); Chloride 112 mmol/L (98-107); Estimated Creatinine Clearance 88 ml/min; Glucose 93 mg/dl (70-99); Magnesium 2.4 mg/dl (1.6-2.3); Potassium 3.8 mmol/L (3.5-5.1); Sodium 133 mmol/L (135-145); eGFR > 60.00
--- NOTE | 2023-07-20 05:06 | PTCARENOTE ---
pt hgb 6.9. blood ordered. pt otherwise comfortable in bed. call blanco in reach.
--- NOTE | 2023-07-20 07:27 | W.PN.HOSP.TC ---
Addendum entered and electronically signed by Catherine Parmar MD 07/20/23 09:05:
correction 2FFP for coagulopathy not platelets
Original Note:
Today's Communication/Plan
-
transfuse prn Hgb goal >7.5
regular diet
IR eval paracentesis, repeat CTA abd/pelvis following
transfuse 2 Platelets coagulopathy
Assessment / Plan
Assessment / Plan
Physical Exam
General: Well Developed, Well Nourished and No Apparent Distress
HEENT: NormoCephalic, Moist mucous membranes and Atraumatic
Respiratory: Clear
Cardiac: S1/S2 and Regular Rhythm; No Murmur or Rub
GI: Soft, distended ostomy bag in place no nicolas blood at this time
Musculoskeletal: No Clubbing, No Cyanosis and No Edema
Skin: No Rash
Neuro: AOx3
# Colostomy bleeding secondary to invasive malignancy
# Acute blood loss anemia/hemorrhagic shock secondary to GI bleed
-Systolic blood pressure of 80s since resolved with transfusions
-Bleeding currently resolved
-Transfusion goal 7.5
-1 unit of blood, receiving 2nd unit 07/20 with drop hgb 6.9
-Patient had CTA abd/pelvis last hospitalization but no source of bleeding identified, view obscured due to ascites
-IR eval requested for paracentesis, will repeat CTA abd/pelvis afterwards for possible source of bleeding amenable to embolization
-Not a surgical candidate even for palliation as per Colorectal
# consumptive coagulopathy
-transfuse 2 platelets today 07/20
# Hypokalemia secondary to GI losses
-monitor and replete as necessary
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
Severe hypoalbuminemia
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
-Continue gabapentin
History of prostate cancer
History of diverticulosis
DNR/DNI
DVT prophylaxis�SCDs
Regular diet
discussed with patient and his Jessy
I spent a total of 55 minutes with the patient or on the floor. More than 50% of this time involved counseling and coordination of care.
Anticipated Discharge: 24 - 48 hours
Subjective/Interval History
-
Date of Service: July 20, 2023
No acute distress. Bleeding has stopped. Hgb drop this am noted however. Patient otherwise in no acute distress comfortable at this time asking to eat.
Objective Data
-
Labs:
Laboratory Results
07/19/23 07/19/23 07/20/23
20:17 22:33 04:20
WBC 7.6
Hgb 8.1 L 6.9 L*
Hct 23.1 L
Plt Count
PT 17.8 H
INR 1.48
APTT 63.0 H
Sodium
Potassium
Chloride
Carbon Dioxide
BUN
Creatinine
Glucose
Calcium
Total Bilirubin
AST
ALT
Alkaline Phosphatase
07/20/23 07/20/23
04:20 04:20
WBC
Hgb Cancelled
Hct 20.0 L* Cancelled
Plt Count 107 L D
PT
INR
APTT
Sodium 133 L
Potassium 3.8
Chloride 112 H
Carbon Dioxide 22
BUN 10
Creatinine 1.1
Glucose 93
Calcium 7.4 L
Total Bilirubin 1.0
AST 27
ALT 15
Alkaline Phosphatase 112
Vital Signs:
Vital Signs
Temp Pulse Resp BP Pulse Ox
98.4 F 77 14 103/62 98
07/20/23 07:22 07/20/23 07:22 07/20/23 07:22 07/20/23 07:22 07/20/23 06:15
I&O
07/19/23 07/20/2324
06:59 06:59 06:59
Intake Total 1325.0 / 1325.0 250 / 250
Balance 1325.0 / 1325.0 250 / 250
--- NOTE | 2023-07-20 07:50 | CON.INTV ---
Consultation
Consultation Request
Date/Time Consultation Requested: 07/20/2023-7 AM
Date/Time Consultation Performed: 07/20/2023-7:30 AM
Requesting Provider: hospitalist
Performing Provider: Dr. Hampton
Reason for Consultation: Severe anemia/critical care management
Medical History
-
Chief Complaint: GI bleed
History of Present Illness:
62-year-old male with a history of stage IV adenocarcinoma of sigmoid with intra-abdominal metastases status post colostomy presented for bleeding from colostomy that was severe requiring multiple transfusions and franchise business consultant consulted for GI
bleed/critical care management 07/20/2023. He does not complain of any abdominal pain surprisingly. He had bleeding in his colostomy noted. Denies any shortness of breath, chest pain, chest tightness, productive cough, pleurisy, weakness or leg
swelling.
Past Medical History
Past Medical History: None (Adenocarcinoma sigmoid stage IV with intra-abdominal metastases status post colostomy. Anemia secondary to GI bleeding. Prostate cancer. Neuropathy. Recent covid infection.)
Social History
Tobacco: Non-smoker
Alcohol: Former
Drug: None
Personal:
Living: With Family
Occupational Exposures: No known asbestos exposure
Environmental Exposures: No known tuberculosis exposure
Family History
Family History: Reviewed & Not Pertinent
Allergies / Home Medications
Allergies
Allergy/AdvReac Type Severity Reaction Status Date / Time
No Known Allergies Allergy Verified 07/15/23 11:12
Home Medications
Medication Instructions Recorded Confirmed Last Taken Type
baclofen 5 mg tablet 5 mg PO TIDPRN PRN hiccups 07/15/23 07/19/23 3 Days Ago History
~07/12/23
diphenoxylate-atropine 2.5 1 tab PO QIDPRN PRN diarrhea 07/15/23 07/19/23 Unknown History
mg-0.025 mg tablet
gabapentin 100 mg capsule 200 mg PO HS Pain 07/15/23 07/19/2307/14/24 History
loperamide 2 mg capsule 4 mg PO TIDPRN PRN diarrhea 07/15/23 07/19/23 1 Week Ago History
~07/08/23
loratadine 10 mg tablet (Claritin) 10 mg PO DAILY Allergies 07/15/23 07/19/23 07/13/23 History
olanzapine 5 mg tablet 5 mg PO Mental Health 07/15/23 07/19/23 Unknown History
ondansetron 8 mg disintegrating 8 mg PO Q8H PRN nausea 07/15/23 07/19/23 Unknown History
tablet
pegfilgrastim-bmez 6 mg/0.6 mL 6 mg SC . EVERY OTHER WEEK white 07/15/23 07/19/23 Unknown History
subcutaneous syringe (Ziextenzo) blood cell count
potassium chloride 10 mEq 10 meq PO DAILY Electrolyte 07/15/23 07/19/23 2 Days Ago History
tablet,extended release(part/cryst) Repletion ~07/13/23
potassium, sodium phosphates 280 2 packet PO BID Electrolyte 07/15/23 07/19/23 2 Days Ago History
mg-160 mg-250 mg oral powder Repletion ~07/13/23
packet (Phos-NaK)
prochlorperazine maleate 10 mg 10 mg PO Q6H PRN nausea 07/15/23 07/19/23 Unknown History
tablet
vitamin B complex 1 tab PO DAILY Supplement 07/15/23 07/19/23 07/13/23 History
Review of Systems
-
Unable to Obtain full review of systems at this time due to: Other (Per HPI)
Vitals / Labs / Diagnostic Testing
Vital Signs
Temp Pulse Resp BP Pulse Ox
98.4 F 77 14 103/62 98
07/20/23 07:22 07/20/23 07:22 07/20/23 07:22 07/20/23 07:22 07/20/23 06:15
Lab Data
07/20/23 04:20
07/20/23 04:20
Laboratory Results
07/19/23
20:17
PT 17.8 H
INR 1.48
APTT 63.0 H
Diagnostic Testing:
Physical Exam
-
Exam:
Well-nourished and well-developed in no apparent distress
HEENT-atraumatic, normocephalic
Neck-supple, no JVD, no bruit
Heart-regular rate and rhythm-no murmurs, rubs or gallops
Chest clear without wheezes or crackles
Back without tenderness
Abdomen-soft, nontender, nondistended, no hepatosplenomegaly, colostomy
Extremities-no cyanosis, clubbing, edema and good peripheral pulses
Integument-intact, no rashes, lesions or ecchymosis
Neurology-alert and oriented, nonfocal motor and sensory exam
Assessment
-
62-year-old male with a history of stage IV adenocarcinoma of sigmoid with intra-abdominal metastases status post colostomy presented for bleeding from colostomy that was severe requiring multiple transfusions and franchise business consultant consulted for GI
bleed/critical care management 07/20/2023.
Assessment
GI bleeding-end colostomy secondary to invasive malignancy
Anemia-acute blood loss
Hemorrhagic shock secondary to GI bleed
Consumptive coagulopathy
Ascites for paracentesis 07/20/23--5.4 L clear lauro ascites
Hypokalemia
Mild hyponatremia-serum sodium 131
Metabolic acidosis
Hyperglycemia
Hypoalbuminemia
Conditions present prior to admission:
Adenocarcinoma sigmoid stage IV with intra-abdominal metastases status post colostomy-treated at [facility]
Chronic colostomy
Anemia secondary to GI bleeding.
Prostate cancer.
Neuropathy.
Recent covid infection.
Plan
Patient admitted to ICU for ongoing hypotension, blood loss/hemorrhagic shock
Supplemental oxygen as needed
Patient a DNR-DO NOT INTUBATE
Noninvasive ventilation if needed
Nebulizers if needed-currently not bronchospastic
Aspiration precautions
Follow hemoglobin
Transfuse as needed
Monitor coagulopathy
Paracentesis--5.4 L
Consider transfer to [facility]
Replace electrolytes
Monitor blood sugar
Insulin supplementation as needed
DVT prophylaxis-nonpharmacological/sequential
GI prophylaxis
Nutrition
Early mobilization
If bleeding stops, remains hemodynamically stable and not requiring pressors then transfer out of ICU-call pulmonary if respiratory issues arise
Critical care statement: A total of 45 minutes of critical care time was provided for this patient today. This includes management of unstable vital signs, evaluation of the patient at bedside, reviewing the patient's pertinent medical records
including radiographs, management of severe anemia, pressor management, microbiology, laboratory evaluations, and discussion with primary team, consultants, pharmacy, nutrition, physical therapy, case management, charge nurse, critical care
nursing, and respiratory therapy.
Diagnostic data:
Chest x-ray 07/15/2023-NAD
Chest x-ray 07/20/2023-Minor left basilar segmental atelectasis
Paracentesis 07/20/23-5400 mL of clear lauro ascites removed
CT chest abdomen and pelvis 07/02/2023-partial hepatic resection with left lower quadrant colostomy, extensive omental metastases, multiple stable low-density peritoneal implants measuring 7.5 cm, 8 cm complex low-density lesion right lateral
abdomen, extensive ascites, stable 2 mm noncalcified pulmonary mass left upper lobe
Data Reviewed
-
EKG: Report reviewed by me
Radiology: Report reviewed by me
CT Scan: Report reviewed by me
Medical Tests (Nuc Med, Echo etc): Report reviewed by me
Labs: Labs reviewed by me
Old Records: Reviewed
Critical Care Time (in minutes): 45
[2023-07-20] MEDS: CLARITIN 10 MG PO (09:02)
[2023-07-20] MEDS: B COMPLEX w/VITAMIN C 1 CAPLET PO (09:02)
[2023-07-20] MEDS: COMPAZINE 10 MG PO (09:02)
--- NOTE | 2023-07-20 09:59 | PTCARENOTE ---
pt is awake and alert, pt completed 2nd unit of PRBC , pt current hemoglobin 6.9 , pt NSR on monitor , BP 92/74, pt is now written for reg diet and tolerating well, requested Compazine prior to eating , pt to receive 2 units of FFP today , pt
scheduled for paracentesis later today , colostomy continues to drain small amts of blood tinged liquid stool
--- NOTE | 2023-07-20 10:11 | HOSPNOTE ---
Family reached out to hospice last week. The patient is not ready for hospice services and still would like to seek treatment. I spoke with patient and left my card and told him if he wants to speak with me please reach out. I will be available if
patient and spouse are interested in hospice services. At this time the patient would like to still seek treatments. Hospice will continue to follow.
[2023-07-20 11:58] LABS: Body Fluid Albumin < 1.0 g/dl; Body Fluid Amylase 63 U/L; Body Fluid LDH < 90 U/L; Body Fluid Mononuclear 77.7 %; Body Fluid Polymorphonuclear 22.3 %; Body Fluid Protein < 2.0 g/dl; Body Fluid WBC 27 /CUMM
--- NOTE | 2023-07-20 11:59 | CM ---
CM following re: discharge planning.
Discussed in Rounds, reviewed pt's chart, met with pt. Pt's spouse and daughter at bedside.
Pt is a 62 year old male, admitted with primary dx of Colostomy bleeding secondary to invasive malignancy. Acute blood loss anemia/hemorrhagic shock secondary to GI bleed.
Pt lives with spouse and a daughter in a 3SH, 1 step to enter, has 2 supportive children. Pt reports he ambulates with a walker and a cane. Pt's spouse stated she is tired to bring the pt back and fourth to the hospital, pt just was discharged on
Tuesday to home, education liaison met with pt last week and pt declined hospice services. Per spouse, pt still has hope he can get better receiving aggressive services. Pt's spouse reports she feels that pt will be benefitted from hospice care but
pt 'is not there yet'. Per spouse, pt has no quality of life but it's up to the pt to decide. Pt has had [facility] and [facility] in the past.
PCP: Robert Bettencourt
Pharmacy: [facility]
D/C plan: home with anticipated VN vs hospice care if pt decides.
CM will follow with discharge plan updates as hospitalization progresses
[2023-07-20 12:02] LABS: Body Fluid Second Tech CF
[2023-07-20 13:24] LABS: Hemoglobin 7.2 g/dL (13.0-18.0)
[2023-07-20] MEDS: FLEXBUMIN 50 IV ×2 (17:12→23:56)
--- NOTE | 2023-07-20 18:00 | PTCARENOTE ---
pt had repeat HH at 12:00 , 7.2, currently receiving 3rd unit of PRBC, pt had 2 units of FFP , pt sent to IR at 1300 and had paracentesis 5400 out pt has dressing dry and intact on L abdomen, at [address] scan for CT angio , pt is oliguric
, voided 250 at 1800
[2023-07-20] MEDS: NEURONTIN 200 MG PO (21:01)
[2023-07-20] MEDS: ZYPREXA 5 MG PO (21:02)
--- NOTE | 2023-07-20 21:08 | PTCARENOTE ---
Received patient in bed AAOx4 and able to make his needs known. Plan of care for the shift reviewed with the patient. Patient received with Prbc transfusing to right SQ port. Repeat lab draw reviewed with the patient. Pt's sinus rhythm on the
monitor. Afebrile. Weak pulses. skin is warm and dry. Breath sounds are clear on room air. SpO2 at 98%. The pt asked for pulse ox to be removed and only checked intermittently. Need for pulse ox reviewed but the pt declined keeping it on. +BS. Left
incision dressing from paracentesis is cdi. Colostomy bag emptied. Liguid BM -brown and blood tinged. The patient utilizes the urinal. Scds in place. All needs are met at this time. Call blanco is within reach.
[2023-07-20 22:23] LABS: Hematocrit 21.5 % (39.0-52.0); Hemoglobin 7.8 g/dL (13.0-18.0)
[2023-07-21] VITALS (18 sets, daily range): BP systolic 85–121; BP diastolic 64–76; BMI 22.2
--- NOTE | 2023-07-21 00:09 | PTCARENOTE ---
Patient reassessed and remains AAOx4. Pt's turning and repositioning himself. No changes from the previous assessment. All needs are met at this time. Colostomy bag emptied. Trace blood tinged liquid BM. Pt encouraged to try and get some sleep.
Safety measures continued/
[2023-07-21 03:45] LABS: Hemoglobin 7.3 g/dL (13.0-18.0); Mean Corpuscular Hgb 31.3 pg (27.0-31.0); Mean Corpuscular Volume 87.1 fL (80.0-94.0); Mean Platelet Volume 8.9 fL (7.4-10.4); Platelet Count 98 10^3/uL (130-400); Red Blood Cell Count 2.33 10^6/uL (4.70-6.10); Red Cell Dist. Width 17.1 % (11.5-14.5); White Blood Cell Count 5.8 10^3/uL (4.8-10.8)
[2023-07-21 03:49] LABS: Hematocrit 20.3 % (39.0-52.0)
[2023-07-21 04:10] LABS: ALT (SGPT) 17 U/L (0-50); AST (SGOT) 33 U/L (17-59); Alkaline Phosphatase 108 U/L (38-126); Blood Urea Nitrogen 8 mg/dl (9-20); Calcium 7.1 mg/dl (8.4-10.2); Carbon Dioxide 21 mmol/L (22-30); Chloride 109 mmol/L (98-107); Estimated Creatinine Clearance 108 ml/min; Glucose 95 mg/dl (70-99); Phosphorus 3.5 mg/dl (2.5-4.5); Potassium 3.1 mmol/L (3.5-5.1); Sodium 131 mmol/L (135-145); Total Bilirubin 1.1 mg/dl (0.2-1.3); Total Protein 4.3 g/dl (6.3-8.2); eGFR > 60.00
[2023-07-21] MEDS: CALCIUM GLUCONATE 130 MG IV (04:38)
[2023-07-21] MEDS: KCL 270 MEQ IV (04:46)
--- NOTE | 2023-07-21 05:20 | PTCARENOTE ---
Patient reassessed. Remains AAOx4. Potassium 3.1, calcium 7.1, and H&H 7.3 / 20.3. CAP BLOCKER made aware. PrBc 1 unit transfusing and Potassium chloride 40 meq rider, and calcium gluconate 3 grams infusing. Patient bladder scanned for 360. encouraged
pt to void and he voided 150. 210 ml in bladder post void. CHG bath provided. Linens changed. All needs are met. Call blanco and personal belongings are within reach.
--- NOTE | 2023-07-21 07:26 | W.PN.HOSP.TC ---
Today's Communication/Plan
-
Accepted for Transfer to [place] under Dr Dillard's care, possible benefit radiation therapy
Stable for downgrade to Tele
monitor H&H, transfuse goal Hgb>7.5
PT/OT
midodrine
Assessment / Plan
Assessment / Plan
Physical Exam
General: Well Developed, Well Nourished and No Apparent Distress
HEENT: NormoCephalic, Moist mucous membranes and Atraumatic
Respiratory: Clear
Cardiac: S1/S2 and Regular Rhythm; No Murmur or Rub
GI: Soft, distended ostomy bag in place no nicolas blood at this time
Musculoskeletal: No Clubbing, No Cyanosis and No Edema
Skin: No Rash
Neuro: AOx3
# Colostomy bleeding secondary to invasive malignancy
# Acute blood loss anemia/hemorrhagic shock secondary to GI bleed
-Systolic blood pressure of 80s since resolved with transfusions
-Bleeding currently resolved
-Transfusion goal >7.5 given bleeding concerns, received 4PBRC so far over course of hospitalization to meet goal
-Patient had CTA abd/pelvis last hospitalization but no source of bleeding identified, view obscured due to ascites
-IR eval appreciated paracentesis performed 07/20 5.7L removed (supplemental IV albumin provided), fluid studies not suggestive infection
-CTA abd/pelvis repeated afterwards noted mild ascites improved from prior imaging, no sign of GI bleed noted, severe metastatic dz
-Not a surgical candidate even for palliation as per Colorectal
-Possible benefit radiation therapy, discussed with [place] transfer center, patient accepted for transfer, accepting physician Dr Dillard, patient and in agreement with transfer, pending bed availability
-admitted to ICU, stable/improved, downgraded to Tele 07/21
#Hypotension
midodrine with holding parameters
BP low normotensive at this time.
# consumptive coagulopathy
-[correction to prior documentation] transfused 2 FFP 07/20
# Hypokalemia secondary to GI losses
-monitor and replete as necessary
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
Severe hypoalbuminemia
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
-Continue gabapentin
History of prostate cancer
History of diverticulosis
DNR/DNI
DVT prophylaxis�SCDs
Regular diet
Stable for downgrade to [facility] 07/21
discussed with patient and his Jessy
I spent a total of 53 minutes with the patient or on the floor. More than 50% of this time involved counseling and coordination of care.
Anticipated Discharge: 24 - 48 hours
Subjective/Interval History
-
Date of Service: July 21, 2023
No acute distress resting comfortably in bed. Bleeding in ostomy resolved for now. Patient reports overall feeling well at this time.
Objective Data
-
Labs:
Laboratory Results
07/20/23 07/21/23
22:19 03:33
WBC 5.8
Hgb 7.8 L 7.3 L
Hct 21.5 L 20.3 L*
Plt Count 98 L
Sodium 131 L
Potassium 3.1 L
Chloride 109 H
Carbon Dioxide 21 L
BUN 8 L
Creatinine 0.9
Glucose 95
Calcium 7.1 L
Total Bilirubin 1.1
AST 33
ALT 17
Alkaline Phosphatase 108
Vital Signs:
Vital Signs
Temp Pulse Resp BP Pulse Ox
97.6 F 80 18 102/68 98
07/21/23 05:24 07/21/23 06:00 07/21/23 06:00 07/21/23 06:00 07/21/23 05:24
I&O
07/20/23 07/21/23 07/22/23
06:59 06:59 06:59
Intake Total 1325.0 / 1400.0 2608 / 2608
Output Total 1300 / 1300
Balance 1325.0 / 1400.0 1308 / 1308
--- NOTE | 2023-07-21 07:44 | W.PN.INTV ---
Today's Communication / Plan
Recommendations
Follow hemoglobin
Transfuse as needed
Hemodynamically stable and transfer out of ICU-call pulmonary if respiratory issues arise
Assessment
-
62-year-old male with a history of stage IV adenocarcinoma of sigmoid with intra-abdominal metastases status post colostomy presented for bleeding from colostomy that was severe requiring multiple transfusions and neon electrician consulted for GI
bleed/critical care management 07/20/2023.
Assessment
GI bleeding-end colostomy secondary to invasive malignancy
Anemia-acute blood loss
Hemorrhagic shock secondary to GI bleed
Consumptive coagulopathy
Ascites for paracentesis 07/20/23--5.4 L clear lauro ascites
Hypokalemia
Mild hyponatremia-serum sodium 131
Metabolic acidosis
Hyperglycemia
Hypoalbuminemia
Conditions present prior to admission:
Adenocarcinoma sigmoid stage IV with intra-abdominal metastases status post colostomy-treated at [facility]
Chronic colostomy
Anemia secondary to GI bleeding.
Prostate cancer.
Neuropathy.
Recent covid infection.
Plan
Hemodynamically improved
Supplemental oxygen as needed
Did not require noninvasive ventilation
Patient a DNR-DO NOT INTUBATE
Noninvasive ventilation if needed
Incentive spirometry
Nebulizers if needed-currently not bronchospastic
Aspiration precautions
Monitor hemoglobin
Transfuse as needed
Monitor coagulopathy
Paracentesis--5.4 L
Consider transfer to [facility]
Replace electrolytes
Follow blood sugar
Insulin supplementation as needed
DVT prophylaxis-nonpharmacological/sequential
GI prophylaxis
Nutrition
Early mobilization
Patient hemodynamically stable and could leave intensive care unit-neon electrician will sign off-please call pulmonary if respiratory issues arise
Diagnostic data:
Chest x-ray 07/15/2023-NAD
Chest x-ray 07/20/2023-Minor left basilar segmental atelectasis
Paracentesis 07/20/23-5400 mL of clear lauro ascites removed
CT chest abdomen and pelvis 07/02/2023-partial hepatic resection with left lower quadrant colostomy, extensive omental metastases, multiple stable low-density peritoneal implants measuring 7.5 cm, 8 cm complex low-density lesion right lateral
abdomen, extensive ascites, stable 2 mm noncalcified pulmonary mass left upper lobe
Subjective Dataa
Subjective Data
Date of Service:
Date of Service: July 21, 2023
Chief Complaint: Parking Enforcer Follow Up and Pulmonary Follow Up
Subjective:
Feels better, no complaints of shortness of breath, chest pain, abdominal pain, no more bleeding in the colostomy
Review of Systems
General: Other (Per HPI)
Objective Data
Data Reviewed
Vital Signs / I&O / Oxygen:
Vital Signs
Temp Pulse Resp BP Pulse Ox
97.6 F 80 18 102/68 98
07/21/23 05:24 07/21/23 06:00 07/21/23 06:00 07/21/23 06:00 07/21/23 05:24
Intake and Output
07/20/23 07/21/23 07/22/23
06:59 06:59 06:59
Intake Total 1325.0 / 1400.0 2608 / 2608
Output Total 1300 / 1300
Balance 1325.0 / 1400.0 1308 / 1308
SaO2 98
Nasal Cannula flow liters per 97
minute
Physical Exam
General: Respiratory Distress (n), Comfortable and Other (Cachexia cachexia)
HEENT: Normocephalic, Anicteric, Moist Mucous Membranes and Other (Temporal wasting)
Cardiovascular: Regular Rhythm
Respiratory: Wheeze (n), Crackles (n), Rhonchi (n), Non-Labored Respirations, Accessory Resp Muscle Use (n) and Stridor (n)
GI: Soft, Non Distended and Other (Colostomy)
Neurology: Awake, Alert and No Motor Deficits
Skin: Warm, Good Color and Cyanosis (n)
Labs/Micro/Reports
Lab Data
07/21/23 03:33
07/21/23 03:33
Microbiology
07/20/23 11:27 Peritoneal Fluid Gram Stain - Preliminary
[2023-07-21] MEDS: COMPAZINE 10 MG PO (08:14)
[2023-07-21] MEDS: B COMPLEX w/VITAMIN C 1 CAPLET PO (08:14)
[2023-07-21] MEDS: CLARITIN 10 MG PO (08:14)
[2023-07-21] MEDS: ProAmatine 5 MG PO ×3 (08:14→17:53)
[2023-07-21] MEDS: FLEXBUMIN 50 IV (08:14)
[2023-07-21] MEDS: KCL 20 MEQ PO (12:13)
[2023-07-21 12:39] LABS: Hematocrit 26.1 % (39.0-52.0)
[2023-07-21 12:43] LABS: Hemoglobin 9.2 g/dL (13.0-18.0)
--- NOTE | 2023-07-21 12:47 | W.PN.UPDATE ---
Update Note
Progress Note Update
stable for downgrade to telemetry
Discussed with patient and his regarding potential benefit transfer to [place]- patient and in agreement with pursuing transfer.
Case was discussed with [place] [facility]
Patient accepted for transfer, accepting physician Dr Dillard, possible benefit inpt radiation therapy
--- NOTE | 2023-07-21 12:54 | CM ---
CM following re: discharge planning.
Discussed in Rounds, reviewed pt's chart, met with pt. Per Rounds meeting, pt is downgraded from ICU level of care. Per hospitalist, pt is accepted for transfer to [facility] for inpatient radiation treatment. Awaiting for a bed
D/C plan: transfer to [facility].
--- NOTE | 2023-07-21 14:04 | PTCARENOTE ---
Went in to check on pt, he reported having heartburn and took some gaviscon. Asked after the fact if it was ok. Made him aware not to take any medication unless we had given it to him. He did report relief. Refused lunch d/t bloating after
breakfast. Refused any protein supplement. Refused to get oob on multiple attempts. Otherwise no changes.
--- NOTE | 2023-07-21 15:57 | PTCARENOTE ---
Report called to Disha who will receive pt in new room. Sister in room and aware of transfer, took some of belongings from room to new room. Pt sat on side of bed.
[2023-07-21 18:28] LABS: Hematocrit 27.1 % (39.0-52.0); Hemoglobin 9.8 g/dL (13.0-18.0)
[2023-07-21] MEDS: ZYPREXA 5 MG PO (21:08)
[2023-07-21] MEDS: NEURONTIN 200 MG PO (21:08)
[2023-07-22] MEDS: MAALOX 30 ML PO (00:29)
[2023-07-22 03:24] VITALS: BP 108/69
[2023-07-22 05:35] LABS: INR 1.32; PT 16.5 Sec (11.4-14.6)
[2023-07-22 05:36] LABS: APTT 44.1 Sec (23.4-35.0)
[2023-07-22 05:45] LABS: ALT (SGPT) 54 U/L (0-50); AST (SGOT) 104 U/L (17-59); Alkaline Phosphatase 295 U/L (38-126); Blood Urea Nitrogen 7 mg/dl (9-20); Calcium 7.4 mg/dl (8.4-10.2); Carbon Dioxide 20 mmol/L (22-30); Chloride 109 mmol/L (98-107); Estimated Creatinine Clearance 118 ml/min; Glucose 97 mg/dl (70-99); Phosphorus 3.8 mg/dl (2.5-4.5); Potassium 3.4 mmol/L (3.5-5.1); Sodium 131 mmol/L (135-145); Total Bilirubin 6.4 mg/dl (0.2-1.3); Total Protein 4.4 g/dl (6.3-8.2); eGFR > 60.00
[2023-07-22 05:50] LABS: Hematocrit 26.2 % (39.0-52.0); Hemoglobin 9.2 g/dL (13.0-18.0); Mean Corp Hgb Conc. 35.1 g/dL (33.0-37.0); Mean Corpuscular Hgb 30.8 pg (27.0-31.0); Mean Corpuscular Volume 87.6 fL (80.0-94.0); Mean Platelet Volume 9.3 fL (7.4-10.4); Platelet Count 132 10^3/uL (130-400); Red Blood Cell Count 2.99 10^6/uL (4.70-6.10); White Blood Cell Count 8.6 10^3/uL (4.8-10.8)
[2023-07-22 07:10] VITALS: BP 109/72
[2023-07-22] MEDS: ProAmatine 5 MG PO ×2 (09:31→12:14)
[2023-07-22] MEDS: B COMPLEX w/VITAMIN C 1 CAPLET PO (09:32)
[2023-07-22] MEDS: CLARITIN 10 MG PO (09:32)
[2023-07-22] MEDS: KCL 20 MEQ PO (09:32)
--- NOTE | 2023-07-22 11:56 | W.PN.HOSP.TC ---
Addendum entered and electronically signed by More Lo MD 07/22/23 16:59:
Dictation - [id number]
Original Note:
Today's Communication/Plan
-
Transfer to [facility]
Assessment / Plan
Assessment / Plan
CVS: S1-S2 normal
Chest: CTA B/L
Abdomen: Soft, NT RUQ, Mild distension, stoma empty now
Extremities: No edema
# Colostomy bleeding secondary to invasive malignancy
# Acute blood loss anemia/hemorrhagic shock secondary to GI bleed
-Systolic blood pressure of 80s since resolved with transfusions
-Bleeding currently resolved
-Transfusion goal >7.5 given bleeding concerns, received 4PBRC so far over course of hospitalization to meet goal
-Patient had CTA abd/pelvis last hospitalization but no source of bleeding identified, view obscured due to ascites
-IR eval appreciated paracentesis performed 07/20 5.7L removed (supplemental IV albumin provided), fluid studies not suggestive infection
-CTA abd/pelvis repeated afterwards noted mild ascites improved from prior imaging, no sign of GI bleed noted, severe metastatic dz
-Not a surgical candidate even for palliation as per Colorectal
-Possible benefit radiation therapy, discussed with [facility], patient accepted for transfer, accepting physician Dr Dillard, patient and in agreement with transfer, pending bed availability
-admitted to ICU, stable/improved, downgraded to Tele 07/21
#Hypotension
midodrine with holding parameters
BP low normotensive at this time.
# coagulopathy
-[correction to prior documentation] transfused 2 FFP 07/20
# Hypokalemia secondary to GI losses
-monitor and replete as necessary
#Elevated LFT- No RUQ tenderness.
[facility] made aware, they can repeat when he gets there
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
Severe hypoalbuminemia
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
-Continue gabapentin
History of prostate cancer
History of diverticulosis
DNR/DNI
DVT prophylaxis�SCDs
Regular diet
Stable for downgrade to tele 07/21
discussed with patient and his Jessy at bed side
D/W RN
D/W case management
D/W Dr.Kristin Dillard at [facility] and updated re LFTS and also clinical status
Anticipated Discharge: Today
Subjective/Interval History
-
Date of Service: July 22, 2023
Objective Data
-
Labs:
Laboratory Results
07/22/23
04:41
WBC 8.6
Hgb 9.2 L
Hct 26.2 L
Plt Count 132 D
PT 16.5 H
INR 1.32
APTT 44.1 H
Sodium 131 L
Potassium 3.4 L
Chloride 109 H
Carbon Dioxide 20 L
BUN 7 L
Creatinine 0.8
Glucose 97
Calcium 7.4 L
Total Bilirubin 6.4 H D
AST 104 H
ALT 54 H
Alkaline Phosphatase 295 H
Vital Signs:
Vital Signs
Temp Pulse Resp BP Pulse Ox
98.3 F 82 14 109/72 95
07/22/23 07:10 07/22/23 07:10 07/22/23 07:10 07/22/23 07:10 07/22/23 07:10
I&O
07/21/23 07/22/23 07/23/23
06:59 06:59 06:59
Intake Total 2608 / 2608 950 / 950
Output Total 1300 / 1300 1250 / 1250
Balance 1308 / 1308 -300 / -300
--- NOTE | 2023-07-22 12:11 | CM ---
Patient has been cleared for discharge to [facility], [address] [place] [address], [facility], for evaluation and potential radiation therapy. Hospitalist has spoken with transfer team, Williams, at [place] ([phone]) and arranged for
transport on this date. Nurse to nurse report # is [phone] and Fax # is [phone]. Transport to be scheduled. Awaiting transport time.
[2023-07-22] MEDS: KCL 40 MEQ PO (12:14)
--- NOTE | 2023-07-22 14:02 | PTCARENOTE ---
Report given to Bernice from [facility]. IV team removed peripheral IV access. Tele monitor removed. [facility] transported Pt to [place]. Belongings from room taken with Pt.
== END 2023-07-22 13:50 | disposition short-term general hospital (02) | DRG 374 ==
LOC: 2 NORTH 19:33
PROVIDERS: Internal Medicine; Nurse Practitioner Primary Care; Radiology Vascular & Interventional Radiology; ADMITTING PHYSICIAN Hospitalist; ATTENDING PHYSICIAN Hospitalist; CONSULT PHYSICIAN Internal Medicine Critical Care Medicine; EMERGENCY PHYSICIAN Emergency Medicine; FAMILY PHYSICIAN Family Medicine
PROC: 30233N1 Transfusion of Nonautologous Red Blood Cells into Peripheral Vein, Percutaneous Approach (ICD-10-PCS; 2023-07-19)
PROC: 30233K1 Transfusion of Nonautologous Frozen Plasma into Peripheral Vein, Percutaneous Approach (ICD-10-PCS; 2023-07-20)
PROC: 0W9G3ZZ Drainage of Peritoneal Cavity, Percutaneous Approach (ICD-10-PCS; 2023-07-20)
DX: C18.7 Malignant neoplasm of sigmoid colon (principal); R57.8 Other shock; E87.1 Hypo-osmolality and hyponatremia; K92.2 Gastrointestinal hemorrhage, unspecified; K94.01 Colostomy hemorrhage; C79.89 Secondary malignant neoplasm of other specified sites; R18.8 Other ascites; E87.20 Acidosis, unspecified; D63.0 Anemia in neoplastic disease; E87.6 Hypokalemia; E88.09 Other disorders of plasma-protein metabolism, not elsewhere classified; G62.0 Drug-induced polyneuropathy; T45.1X5A Adverse effect of antineoplastic and immunosuppressive drugs, initial encounter; Z66 Do not resuscitate; R73.9 Hyperglycemia, unspecified
CPT/HCPCS: 36430; 49083; 71045; 74174; 80053; 82042; 82150; 83615; 83735; 84100; 84157; 85014; 85018; 85025; 85027; 85610; 85730; 86850; 86900; 86901; 86920; 87015; 87070; 87205; 89051; 97162; 97166; 99291; J7030; P9016; P9017; P9047; Q9967

== ENCOUNTER → 2023-08-05 12:21 | Outpatient (REF) | payer OTHER, SELFPAY ==
[2023-08-05 12:42] VITALS: BP 118/81; BP_SYST 82
[2023-08-05 13:32] VITALS: BP 98/60
[2023-08-05 14:33] LABS: Body Fluid Mononuclear 74.5 %; Body Fluid Polymorphonuclear 25.5 %; Body Fluid WBC 86 /CUMM
[2023-08-05 15:08] LABS: Body Fluid Second Tech AMA
== END ==
LOC: RADI 12:21
PROVIDERS: ATTENDING PHYSICIAN Internal Medicine; FAMILY PHYSICIAN Family Medicine
DX: R18.8 Other ascites (principal)
CPT/HCPCS: 49083; 87015; 87070; 87205; 89051

== ENCOUNTER → 2023-08-16 13:07 | Outpatient (REF) | payer OTHER, SELFPAY ==
[2023-08-16 13:36] VITALS: BP 116/86; BP_SYST 89
[2023-08-16 14:28] VITALS: BP 104/70; BP_SYST 71
[2023-08-16 15:17] LABS: Body Fluid Mononuclear 71.8 %; Body Fluid Polymorphonuclear 28.2 %; Body Fluid WBC 78 /CUMM
[2023-08-16 15:20] LABS: Body Fluid Second Tech SD
== END ==
LOC: RADI 13:07
PROVIDERS: ATTENDING PHYSICIAN Internal Medicine Cardiovascular Disease; FAMILY PHYSICIAN Family Medicine
DX: R18.8 Other ascites (principal)
CPT/HCPCS: 49083; 89051

== ENCOUNTER → 2023-08-26 09:26 | Outpatient (REF) | payer OTHER, SELFPAY ==
[2023-08-26 09:36] VITALS: BP 122/90; BP_SYST 109
[2023-08-26 10:31] VITALS: BP 92/62
[2023-08-26 12:32] LABS: Body Fluid Mononuclear 75.6 %; Body Fluid Polymorphonuclear 24.4 %; Body Fluid WBC 86 /CUMM
[2023-08-26 12:35] LABS: Body Fluid Second Tech LD
== END ==
LOC: RADI 09:26
PROVIDERS: ATTENDING PHYSICIAN Internal Medicine; FAMILY PHYSICIAN Family Medicine
DX: R18.8 Other ascites (principal)
CPT/HCPCS: 49083; 89051

== ENCOUNTER → 2023-08-30 08:40 | Outpatient (REF) | payer OTHER, SELFPAY ==
[2023-08-30 08:45] VITALS: BP 106/80; BP_SYST 93
[2023-08-30 09:41] LABS: Body Fluid WBC 141 /CUMM
[2023-08-30 09:42] LABS: Body Fluid Second Tech LD
[2023-08-30 09:49] VITALS: BP 96/62; BP_SYST 77
== END ==
LOC: RADI 08:40
PROVIDERS: ATTENDING PHYSICIAN Internal Medicine; FAMILY PHYSICIAN Family Medicine
DX: C18.9 Malignant neoplasm of colon, unspecified (principal); R18.0 Malignant ascites
CPT/HCPCS: 49083; 89051

== ENCOUNTER → 2023-09-06 08:39 | Outpatient (REF) | payer OTHER, SELFPAY ==
[2023-09-06 08:57] VITALS: BP 110/82; BP_SYST 96
[2023-09-06] MEDS: ANCEF 10 IV (10:25)
[2023-09-06 11:18] VITALS: BP 98/80; BP_SYST 81
[2023-09-06 12:22] VITALS: BP 95/69
== END ==
LOC: RADI 08:39
PROVIDERS: ATTENDING PHYSICIAN Internal Medicine; FAMILY PHYSICIAN Family Medicine
DX: C18.9 Malignant neoplasm of colon, unspecified (principal); R18.0 Malignant ascites
CPT/HCPCS: 49418; 99152; 99153; C1769